=== PATIENT | female | born 1945 | race Caucasian/White ===

== ENCOUNTER → 2018-03-30 12:56 | Outpatient (CLI) | payer MEDICARE, BC, SELFPAY ==
--- NOTE | 2018-03-30 13:09 | RAD_ITS ---
HISTORY: HISTORY OF OSTEOPOROSIS, DIAGNOSED AT AGE 51, NO INJURY TO RIBS, HAVING LEFT POSTERIOR UPPER BACK PAIN COMPARISON: None FINDINGS: Generalized osteoporosis with poor bony detail. The left ribs are not well seen. Allowing for this, no displaced fracture or definite recent rib fracture. Dorsal kyphosis. Thoracolumbar S-shaped scoliosis with the thoracic convexity to the right. Age-indeterminate compression deformities are approximately the T7 and T9 vertebra. Left shoulder prosthesis. Postsurgical changes within the upper abdomen. Atherosclerotic thoracic aorta. RAD/Ribs Unil 2V No CXR IMPRESSION: 1. Osteoporosis with poor visualization of the left ribs. No definite displaced or acute rib fracture. 2. Kyphoscoliosis with age indeterminate compression deformities of approximately the T7 and T9 vertebra. 3. Suggest further correlation with whole-body bone scan at which time both the ribs and spine can be evaluated for recent injury. at 0420 Reported and signed by: Don Kruger MD Electronically Signed: Don Kruger, at 4:19 EST Tel , Service support ,
== END ==
LOC: RAD 13:06
PROVIDERS: Family Provider Preventive Medicine Occupational Medicine; PCP Preventive Medicine Occupational Medicine; Referring Provider Anesthesiology Pain Medicine; Visit Provider Anesthesiology Pain Medicine
DX: R07.9 Chest pain, unspecified (principal)
CPT/HCPCS: 71100

== ENCOUNTER → 2018-12-12 07:14 | Outpatient (CLI) | payer MEDICARE, BC, SELFPAY ==
--- NOTE | 2018-12-12 07:19 | CT_ITS ---
STUDY: LOW DOSE CT LUNG CANCER SCREENING REASON FOR EXAM: Female, 73 years old. The patient has a smoking history of 1.5 pack per day for 50 years. RADIATION DOSAGE (If Supplied By Facility): CTDIvol = ( 2.01 ) mGy, DLP = ( 63.3 ) mGycm TECHNIQUE: No contrast was administered. Low dose technique was utilized (average mAS-38 and kVp 120). 1.25 mm axial source images with a slice interval of 1.25-mm were reconstructed in lung windows. 2.5 mm axial source images with a slice interval of 2.5-mm were reconstructed in lung windows. 5.0 mm axial source images with a slice interval of 5.0-mm were reconstructed in soft tissue windows. Nodule measured using lung windows on PACS and/or independent workstation with automated measurement of minimum and maximum diameter. Nodule measurement reported as average diameter rounded to the nearest whole number. Growth is defined as an increase ins size of greater than 1.5 mm. COMPARISON: None. NODULES: No significant nodules are seen. Emphysema: Hyperinflation and mild emphysematous changes. Scarring at the lung bases. Endobronchial lesion: None Aorta: Atherosclerotic calcific plaques at the level of the aortic arch and descending thoracic aorta. Coronary arteries: Coronary artery calcification. Heart: Unremarkable. Mediastinal nodes: Small mediastinal lymph nodes. Other chest and abdominal findings: Increased kyphosis with loss of height of multiple central dorsal vertebrae. CT/Low Dose CT Lung Screening IMPRESSION: Lung-RADS category 2 - Continue annual screening with LDCT in 12 months. IMPORTANT NOTES FOR USE: ACR Lung-RADS Version 1.0 Assessment Categories Release Date: June 19, 2013 Category: Coded 0-4 bases on nodule(s) with highest degree of suspicion. Negative screen is defined as categories 1 and 2; a positive screen is defined as categories 3 and 4. Category 3 and 4A nodules that are unchanged on interval CT should be coded as category 2, and individuals returned to screening in 12 months. Category 4X: Category 3 or 4 nodules with additional imaging findings that increase the suspicion of lung cancer, such as spiculation, GGN that doubles in size in 1 year, enlarged lymph notes, etc. Category Modifiers: S (significant finding unrelated to lung cancer) and C (prior history of treated lung cancer) may be added to the 0-4 Lung-RADS Electronically Signed: Manolo Rothman, at 14:53 EDT , Service support ,
--- NOTE | 2018-12-12 13:34 | PFT ---
INTRODUCTION: The patient is a 73-year-old female that presents for pulmonary function studies secondary to a diagnosis of tobacco abuse. Respiratory therapy reports good patient effort. Bronchodilators were used during testing. INTERPRETATION: Forced expiration spirometry demonstrates no evidence of a large airways obstructive ventilatory defect. There was a significant response to aerosolized bronchodilators noted, based upon change in FEV1. Spirograms are of suboptimal quality and terminate prior to 6 seconds, likely underestimating FVC. Body plethysmography was performed and reveals lung volumes to be within normal limits. Diffusing capacity by single breath CO is reduced at 45% of predicted. IMPRESSION: No large airways defect. Significant bronchodilator response. Normal lung volumes. Reduced diffusing capacity, which could be related to an underlying pulmonary vascular disorder such as pulmonary hypertension.
== END ==
PROVIDERS: Family Provider Family Medicine Geriatric Medicine; PCP Family Medicine Geriatric Medicine; Referring Provider Family Medicine Geriatric Medicine; Visit Provider Family Medicine Geriatric Medicine
DX: Z12.2 Encounter for screening for malignant neoplasm of respiratory organs (principal); Z87.891 Personal history of nicotine dependence
CPT/HCPCS: 94060; 94726; 94729; G0297

== ENCOUNTER 2018-12-12 22:22 | Inpatient (IN) | payer MEDICARE, BC, SELFPAY ==
[2018-12-12 22:23] VITALS: BP 139/92; PULSE 118; RESP 17; TEMP 36.7; O2SAT 96; BMI 22.4
--- NOTE | 2018-12-12 22:42 | EKG12_ITS ---
Test Reason : Blood Pressure : / mmHG Vent. Rate : 111 BPM Atrial Rate : 111 BPM P-R Int : 132 ms QRS Dur : 080 ms QT Int : 374 ms P-R-T Axes : 075 -25 045 degrees QTc Int : 508 ms Sinus tachycardia Septal infarct , age undetermined Abnormal ECG Confirmed by JIMMY ROBERSON, GIULIA ([id number]), editorial director CALIN GARZON ([id number]) on 12/16/2018 10:45:31 AM Referred By: Selvin Ca Confirmed By:GIULIA MARQUEZ MD
--- NOTE | 2018-12-12 22:49 | ED.VIS.GEN ---
History of Present Illness Chief Complaint: Abd Pain Informant: Patient Onset: Days Context: Gradual Onset Timing: Intermittent Narrative: Patient is a 73-year-old female with history of osteoporosis, multiple prior fractures and tobacco abuse presenting with vomiting. Patient states she has been throwing up and having some epigastric or left upper quadrant abdominal pain for the past few days however today she started throwing up what looked like coffee grounds. She denies any history of GI bleed. She also states that she is been feeling constipated but her last bowel movement was yesterday. She denies any black or bloody stools. 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 She denies ever having a colonoscopy or endoscopy. Patient states that she does have abdominal pain and feels that she needs to have a bowel movement but has been unable to have one. Patient denies any associated chest pain. She also states that she has had a chronic cough this been worse over the past 4 months or so. This is not significantly changed today. She does feel a bit weaker and more lightheaded than normal. Patient had a CT outpatient today as well as a recent pulmonary function test with Dr. Ca. She denies any other complaints at this time. Patient is not on any blood thinners. She is never had an endoscopy or colonoscopy as far she is aware. Past Medical History - Allergies and Home Meds Allergies/Adverse Reactions: Allergies No Known Allergies Allergy (Verified 12/12/18 22:23) Past Medical History: - - Osteoporosis, COPD Surgical History: gastric bypass, herniorrhaphy, total hip arthroplasty, - - Left shoulder arthroplasty Lives: With Family Smoking Status: Former smoker - Family History Maternal Family History: Reports: No pertinent history Review of Systems All systems negative except as indicated General: Reports: Malaise Respiratory: Reports: Cough - Chronic Gastrointestinal: Reports: Abdominal pain, Nausea, Vomiting, Diarrhea, - - Coffee-ground emesis per patient Musculoskeletal: Reports: Myalgias Neurological: Reports: Weakness - Generalized Physical Exam Vital Signs/Narrative: Vital Signs Temp Pulse Resp BP Pulse Ox 12/12/18 22:23 98.1 F 118 H 17 139/92 H 96 Inital Vital Signs reviewed: Yes General: Well developed, Cachectic, No Acute Distress Head: Normocephalic, Atraumatic Eyes: Perrl, EOMI. Negative for: Pale conjunctiva ENT: Moist mucous membranes, No rhinorrhea, TM's clear Neck: Supple, Nontender Cardiovascular: Regular rhythm, No murmurs, Tachycardia Respiratory: No distress, Diminished, Chest tenderness - Left lower chest wall, - - Bibasilar crackles Abdomen: Soft, Nondistended, Tender - Epigastric region, Hypoactive bowel sounds. Negative for: Guarding, Rebound tenderness Back: Nontender, Normal Inspection Extremities: Nontender, No edema Skin: Normal color, No rash Neurological: Alert, Oriented x3, Cranial nerves II-XII grossly intact, Normal Strength, Normal Sensation Psychological: Normal affect, Normal Mood Diagnostic/Tx/Re-eval Clinical Impression(s) from Imaging Studies Abdomen/Pelvis CT 12/12/18 23:29 IMPRESSION: Previous cholecystectomy or dilated intrahepatic biliary radicles and a prominent common bile duct Old compression fractures involving the superior endplates of T12, L2, L3 and L4 and a healing fracture involving the right iliac bone. Pelvic congestion syndrome demonstrated by numerous dilated and tortuous pelvic veins Electronically Signed: Kolton Stephen MD at 2:32 EDT Tel , Service support , Laboratory Data 12/12/18 12/12/18 12/12/18 22:52 22:52 22:52 WBC 7.7 RBC 4.29 Hgb 13.4 Hct 40.1 MCV 93.5 MCH 31.2 MCHC 33.4 RDW Std Deviation 53.1 H RDW Coeff of Vito 15.3 H Plt Count 318 MPV 9.4 Immature Gran % (Auto) 0.300 Neut % (Auto) 75.7 H Lymph % (Auto) 14.7 L [place] % (Auto) 8.6 Eos % (Auto) 0.7 Baso % (Auto) 0.0 Absolute Neuts (auto) 5.8 Absolute Lymphs (auto) 1.13 Nucleated RBC % 0 PT INR APTT Sodium 134 L Potassium 3.2 L Chloride 94 L Carbon Dioxide 33.0 H Anion Gap 7 BUN 26 H Creatinine 0.45 L Estim Creat Clear Calc 36.53 Est GFR (MDRD) Af Amer 174 Est GFR (MDRD) Non-Af 144 BUN/Creatinine Ratio 57.3 H Glucose 100 Lactic Acid 0.9 Calcium 8.5 Total Bilirubin 0.60 AST 14 L ALT 28 Alkaline Phosphatase 108 Troponin I < 0.015 Total Protein 6.2 L Albumin 2.6 L Globulin 3.6 Albumin/Globulin Ratio 0.7 L Lipase 191 Urine Color Urine Clarity Urine pH Ur Specific [place] Urine Protein Urine Glucose (UA) Urine Ketones Urine Occult Blood Urine Nitrite Urine Bilirubin Urine Urobilinogen Ur Leukocyte Esterase Urine RBC Urine WBC Ur Squamous Epith Cells Urine Bacteria Urine Mucus Blood Type Antibody Screen 12/12/18 12/12/18 12/13/18 22:52 23:00 00:45 WBC RBC Hgb Hct MCV MCH MCHC RDW Std Deviation RDW Coeff of Vito Plt Count MPV Immature Gran % (Auto) Neut % (Auto) Lymph % (Auto) [place] % (Auto) Eos % (Auto) Baso % (Auto) Absolute Neuts (auto) Absolute Lymphs (auto) Nucleated RBC % PT 12.8 INR 1.0 APTT 29.9 Sodium Potassium Chloride Carbon Dioxide Anion Gap BUN Creatinine Estim Creat Clear Calc Est GFR (MDRD) Af Amer Est GFR (MDRD) Non-Af BUN/Creatinine Ratio Glucose Lactic Acid Calcium Total Bilirubin AST ALT Alkaline Phosphatase Troponin I Total Protein Albumin Globulin Albumin/Globulin Ratio Lipase Urine Color Yellow Urine Clarity Clear Urine pH 8.0 Ur Specific [place] 1.015 Urine Protein Negative Urine Glucose (UA) Normal Urine Ketones Negative Urine Occult Blood Negative Urine Nitrite Negative Urine Bilirubin Negative Urine Urobilinogen Normal Ur Leukocyte Esterase Negative Urine RBC 0 SEEN Urine WBC 0 SEEN Ur Squamous Epith Cells 0 SEEN Urine Bacteria 0 SEEN Urine Mucus 0 SEEN Blood Type A POSITIVE Antibody Screen NEGATIVE - Rhythm Strip Rhythm Strip: Sinus Tach Rate: 111 Ectopy: None - EKG Initial EKG Interpretation: Sinus Tachycardia, - - Sinus tachycardia at a rate of 111 MD interval 132 QRS 80 QT/QTc 374/508 Left axis deviation Normal ST segments - Medical Decision Making Patient is evaluated for coffee-ground emesis. She appears nontoxic and in no acute distress. Patient is retching in the room and does produce emesis that is coffee-ground colored. She is tachycardic upon arrival but does improve slightly with fluids however she does remain tachycardic. Hemoglobin is normal. Patient is a vomit test negative for blood by gastric occult however still have a high clinical suspicion. Because of her associated abdominal pain CT of the abdomen and pelvis is obtained. This does not show any acute intra-abdominal process. Patient is given IV Protonix and fluids. Type and screen is sent. She will be admitted to general medical floor for further evaluation of presumed hematemesis. Discussed the case with Dr. Deluna, surgery on-call, who is agreeable with this. Patient has a chronic cough. She had a routine outpatient CT today that did not show any acute pulmonary pathology. Patient is admitted to Dr. Segovia service. She is stable for the medical floor at time of disposition. ED Disposition - Plan for ED Patient: Disposition: Acute Care Hospital [facility] Diagnosis: Hematemesis, Tachycardia
--- NOTE | 2018-12-12 22:49 | ED.RN ---
NO OLD EKGS IN MUSE
[2018-12-12] MEDS: Morphine 4 MG/ML Syringe IV (22:54)
[2018-12-12] MEDS: 0.9% Normal Saline 1,000 ML 1000 ML IV (22:54)
[2018-12-12] MEDS: Ondansetron 4 MG/2 ML Vial IV (22:54)
[2018-12-12 23:06] LABS: Absolute Lymphocyte Count 1.13 X10^3/uL (0.83-4.51); Absolute Neutrophil Count 5.8 X10^3/uL (2.0-7.7); Eosinophil# 0.05 X10^3/uL; Eosinophils% 0.7 % (0-5); Hematocrit 40.1 % (37-47); Hemoglobin 13.4 g/dL (12.0-15.0); Lymphocyte # 1.13 X10^3/ul (4.0); Lymphocyte % 14.7 % (19-41); Mean Corp Hgb Conc 33.4 g/dL (32-36); Mean Corpuscular Hgb 31.2 pg (27.0-32.0); Mean Corpuscular Volume 93.5 fL (81-99); Mean Platelet Vol. 9.4 fl (6.2-12.0); Monocyte# 0.66 X10^3/uL; Monocyte% 8.6 % (0-10); NRBC Flagged by Analyzer 0 % (0-5); Neutrophil # 5.82 X10^3/uL (2.7-7.7); Neutrophil % 75.7 % (47-70); Platelet Count 318 K/mm3 (150-450); RBC Distribution Width CV 15.3 % (11.6-14.6); RBC Distribution Width SD 53.1 fl (35.1-43.9); Red Blood Count 4.29 M/mm3 (4.2-5.4); White Blood Count 7.7 K/mm3 (4.4-11.0)
[2018-12-12 23:17] LABS: Partial Thromboplast Time 29.9 Seconds (24.1-36.2); Prothrombin Time (Protime)PT. 12.8 SECONDS (11.7-14.9)
[2018-12-12 23:29] LABS: Lactic Acid 0.9 mmol/L (0.4-2.0)
--- NOTE | 2018-12-12 23:29 | CT_ITS ---
STUDY: CT ABDOMEN AND PELVIS WITH CONTRAST REASON FOR EXAM: Female, 73 years old. Abdominal pain and vomiting RADIATION DOSAGE (If Supplied By Facility): CTDIvol = ( 10.81 ) mGy, DLP = ( 527.73 ) mGycm TECHNIQUE: Transaxial images were obtained from the dome of the diaphragm to the symphysis pubis without oral contrast. IV/Oral Isovue 370 100 was administered. Sagittal and coronal images were reconstructed. Individualized dose optimization techniques were used for this CT. COMPARISON: None. FINDINGS: The lung bases are clear. The liver is normal. A previous cholecystectomy with dilated intrahepatic biliary radicles and a 1.2 cm, common bile duct. The spleen is normal. The pancreas is normal. Both adrenals are normal. A 3.5 cm right renal cyst with 2 other tiny cysts in the right renal cortex. The left kidney is normal The previous gastric surgery. There is no bowel distention, acute appendicitis or diverticulitis. No constricting lesions are seen in large bowel. The abdominal wall is intact with no hernias. There is no ascites or any free intraperitoneal air. No indication of epiploic appendagitis The vascular structures in the retroperitoneum are normal. There is no retrocrural, retroperitoneal or mesenteric adenopathy. Old compression fractures involving the superior endplates of L4, L3, L2 and T12. There is also a healing fracture involving the right iliac bone The urinary bladder is normal. Previous hysterectomy. Congested veins in the pelvis There is no inguinal or pelvic adenopathy. There is no inguinal hernia. CT/Abdomen/Pelvis WITH Contrast IMPRESSION: Previous cholecystectomy or dilated intrahepatic biliary radicles and a prominent common bile duct Old compression fractures involving the superior endplates of T12, L2, L3 and L4 and a healing fracture involving the right iliac bone. Pelvic congestion syndrome demonstrated by numerous dilated and tortuous pelvic veins Electronically Signed: Kolton Stephen MD at 2:32 EDT Tel , Service support ,
[2018-12-12 23:36] LABS: ALB/GLOB Ratio 0.7 RATIO (0.9-2.4); AST(SGOT) 14 U/L (15-37); Alanine Aminotransfer ALT/SGPT 28 U/L (13-56); Albumin, Serum 2.6 g/dL (3.2-5.0); Alkaline Phosphatase 108 U/L (45-117); Anion Gap 7 (5-15); BUN 26 mg/dL (7-18); BUN/Creat Ratio 57.3 RATIO (10-20); Calcium,Total 8.5 mg/dL (8.5-10.1); Chloride 94 mmol/L (98-107); Creatinine, Serum 0.45 mg/dL (0.55-1.02); EST Glomerular Filtration Rate 144 mL/min (>60); Est Glom Filt Rate - Afr Amer 174 mL/min (>60); Estimated Creatinine Clearance 36.53 ml/min; Globulin 3.6 g/dL (2.2-4.2); Glucose 100 mg/dL (74-106); Lipase 191 U/L (73-393); Potassium 3.2 mmol/L (3.5-5.1); Protein, Total 6.2 g/dL (6.4-8.2); Sodium Level 134 mmol/L (136-145)
[2018-12-13] VITALS (15 sets, daily range): BP systolic 131–164; BP diastolic 79–100; PULSE 98–120; RESP 16–18; TEMP 36.7–37.5; O2SAT 91–96; BMI 22.6
[2018-12-13] MEDS: Ondansetron 4 MG/2 ML Vial IV ×2 (00:06→03:08)
[2018-12-13 00:54] LABS: Bacteria 0 SEEN /hpf (None Seen); Mucous, Urine 0 SEEN /hpf (<or=2+); Red Blood Cells-Urine 0 SEEN /hpf (0-5); Squamous Epithelial Cells - UA 0 SEEN /hpf (5-10); White Blood Cells 0 SEEN /hpf (0-5)
[2018-12-13 01:03] LABS: Color, Urine Yellow (Yellow); Glucose, Dipstick Normal (Normal); Ketone-Dipstick Negative (Negative); Leukocyte Esterase-Dipstick Negative /ul (Negative); Nitrite-Dipstick Negative (Negative); Occult Blood-Urine Negative /ul (Negative); Protein-Dipstick Negative (Negative); Specific Gravity, Urine 1.015 (1.002-1.030); Urine Bilirubin Dipstick Negative (Negative); Urine Clarity Clear (Clear); Urine Urobilinogen Normal (Normal)
--- NOTE | 2018-12-13 03:06 | HP.PCM_ITS ---
Problem List (1) Tobacco abuse Status: Chronic (2) Nausea and vomiting Status: Acute Qualifiers: Vomiting type: hematemesis Qualified Code(s): K92.0 - Hematemesis (3) Osteoporosis Status: Chronic (4) Depression Status: Chronic History of Present Illness Date of Admission: 12/13/18 Chief Complaint: nausea and vomiting The patient is a 73 year old female patient with a past medical history of osteoporosis, tobacco abuse disorder, unknown psychiatric history likely with depression presents to the emergency room with chief complaint of nausea and vomiting coffee-ground emesis. Onset of this began approximately 3 days ago and is associated with abdominal discomfort and pain. The patient currently denies chest pain or shortness of breath or fevers or chills. Laboratory studies show hemoglobin of 13, guaiac testing of her emesis was negative for blood however it did appear to be coffee-ground and this and was verified by ER physician. The patient denies history of GERD. She is agreeable to being admitted and followed by general surgeon Dr. Deluna for possible EGD. Past Medical History Past Medical History (Chronic Problems): Chronic Problems Tobacco abuse (Chronic) Osteoporosis (Chronic) Depression (Chronic) Allergies No Known Allergies Allergy (Verified 12/12/18 22:23) Surgical History: gastric bypass, herniorrhaphy, total hip arthroplasty, - - Left shoulder arthroplasty Lives: With Family Smoking Status: Former smoker - *Family History Maternal History Items: No pertinent history Review of Systems Constitutional: Denies: Chills, Fever, Weight Change HEENT: Denies: Head Aches, Sinus Congestion, Sinus Drainage Cardiovascular: Denies: Chest Pain, Palpitations Respiratory: Denies: Cough, Shortness of breath at rest, Sputum production Gastrointestinal: Reports: Abdominal Pain, Hematemesis, Nausea, Vomiting Genitourinary: Denies: Dysuria Musculoskeletal: Denies: Joint Pain, Joint Tenderness Skin: Denies: Rash, Wounds Neurological: Denies: Numbness, Tingling, Focal weakness Psychiatric: Reports: Anxiety, Depression. Denies: Homicidal Ideations, Suicidal Ideations Hematologic/ Lymphatic: Denies: Easy Bruising, Easy Bleeding VTE Information - Inpt Only VTE Present on Admission: No VTE Mechan Device Prophylaxis: SCD's VTE Pharm Prophylaxis ordered?: No Patient Problems: Active and Suspected Problems Nausea and vomiting (Acute) - Physical Exam Vitals/I&O's: Vital Signs Temp Pulse Resp BP Pulse Ox 98.1 F 105 H 17 152/98 H 91 12/12/18 22:23 12/13/18 02:55 12/13/18 02:55 12/13/18 02:55 12/13/18 02:55 Oxygen Delivery Method Room Air Weight: 115 lb Body Mass Index (BMI) 22.4 Intake and Output for Last 24 Hours 12/11/18 12/12/18 12/13/18 23:59 23:59 23:59 Intake Total 1110 / 1110 Balance 1110 / 1110 General: Alert, Oriented x3, Cooperative HEENT: Atraumatic, Normocephalic Neck: Supple Lungs: Clear to auscultation, Normal air movement, No rhonchi, No wheeze, No rales Cardiovascular: Regular rate, Normal S1, Normal S2, No murmurs, Tachycardic Abdomen: Bowel Sounds Present, Soft, Tender - generalized Extremities: No edema, Capillary Refill Less than 3 Seconds Skin: No rashes Musculoskeletal: No Tenderness to Palpation of Joints or Extremities Neurological: Neuro grossly intact Psych/Mental Status: Normal Affect, Appropriate Microbiology Past 72 Hours 12/13/18 00:02 Vomitus Gastric Occult Blood - Final 12/12/18 23:10 Stool Stool Occult Blood (YFN) - Final Laboratory Results 12/12/18 22:52: WBC 7.7, RBC 4.29, Hgb 13.4, Hct 40.1, MCV 93.5, MCH 31.2, MCHC 33.4, RDW Std Deviation 53.1 H, RDW Coeff of Vito 15.3 H, Plt Count 318, MPV 9.4, Immature Gran % (Auto) 0.300, Neut % (Auto) 75.7 H, Lymph % (Auto) 14.7 L, [place] % (Auto) 8.6, Eos % (Auto) 0.7, Baso % (Auto) 0.0, Absolute Neuts (auto) 5.8, Absolute Lymphs (auto) 1.13, Nucleated RBC % 0 12/12/18 22:52: Sodium 134 L, Potassium 3.2 L, Chloride 94 L, Carbon Dioxide 33.0 H, Anion Gap 7, BUN 26 H, Creatinine 0.45 L, Estim Creat Clear Calc 36.53, Est GFR (MDRD) Af Amer 174, Est GFR (MDRD) Non-Af 144, BUN/Creatinine Ratio 57.3 H, Glucose 100, Calcium 8.5, Total Bilirubin 0.60, AST 14 L, ALT 28, Alkaline Phosphatase 108, Troponin I < 0.015, Total Protein 6.2 L, Albumin 2.6 L, Globulin 3.6, Albumin/Globulin Ratio 0.7 L, Lipase 191 12/12/18 22:52: Lactic Acid 0.9 12/12/18 22:52: PT 12.8, INR 1.0, APTT 29.9 12/12/18 23:00: Blood Type A POSITIVE, Antibody Screen NEGATIVE 12/13/18 00:45: Urine Color Yellow, Urine Clarity Clear, Urine pH 8.0, Ur Specific [place] 1.015, Urine Protein Negative, Urine Glucose (UA) Normal, Urine Ketones Negative, Urine Occult Blood Negative, Urine Nitrite Negative, Urine Bilirubin Negative, Urine Urobilinogen Normal, Ur Leukocyte Esterase Negative, Urine RBC 0 SEEN, Urine WBC 0 SEEN, Ur Squamous Epith Cells 0 SEEN, Urine Bacteria 0 SEEN, Urine Mucus 0 SEEN Current Medications Sodium Chloride () 1,000 mls @ 100 mls/hr IV .Q10H ROCIO Assessment/Plan All Active Problems Nausea and vomiting (Acute) Chronic Problems Tobacco abuse (Chronic) Osteoporosis (Chronic) Depression (Chronic) Plan 1. Nausea vomiting with abdominal pain?admit to general medical floor, consult general surgeon Dr. Deluna, make patient n.p.o., IV normal saline at 75 cc/h, CBC CMP in the morning, IV Protonix 40 mg IV twice daily 2. Smoking cessation strongly encouraged patient on interested at this time can offer nicotine patch in the morning 3. Osteoporosis?continue any medications currently taking 4. DVT prophylaxis SCDs Code Visit Inpatient E&M: 94901 Init Hosp L3
[2018-12-13] MEDS: 0.9% Normal Saline 1,000 ML 100 ML IV (03:08)
[2018-12-13 05:52] LABS: Absolute Lymphocyte Count 1.09 X10^3/uL (0.83-4.51); Absolute Neutrophil Count 3.8 X10^3/uL (2.0-7.7); Eosinophil# 0.03 X10^3/uL; Eosinophils% 0.6 % (0-5); Hematocrit 35.9 % (37-47); Hemoglobin 11.6 g/dL (12.0-15.0); Lymphocyte # 1.09 X10^3/ul (4.0); Mean Corp Hgb Conc 32.3 g/dL (32-36); Mean Platelet Vol. 9.3 fl (6.2-12.0); Monocyte# 0.54 X10^3/uL; Monocyte% 9.9 % (0-10); NRBC Flagged by Analyzer 0 % (0-5); Neutrophil # 3.78 X10^3/uL (2.7-7.7); Neutrophil % 69.3 % (47-70); Platelet Count 281 K/mm3 (150-450); RBC Distribution Width CV 15.4 % (11.6-14.6); RBC Distribution Width SD 54.4 fl (35.1-43.9); Red Blood Count 3.74 M/mm3 (4.2-5.4); White Blood Count 5.5 K/mm3 (4.4-11.0)
--- NOTE | 2018-12-13 06:09 | NURSING ---
pt states that her bones break very easily. states even a bump can break a bone.
[2018-12-13 06:11] LABS: ALB/GLOB Ratio 0.8 RATIO (0.9-2.4); AST(SGOT) 12 U/L (15-37); Alanine Aminotransfer ALT/SGPT 24 U/L (13-56); Albumin, Serum 2.3 g/dL (3.2-5.0); Alkaline Phosphatase 88 U/L (45-117); Anion Gap 6 (5-15); BUN 34 mg/dL (7-18); BUN/Creat Ratio 73.3 RATIO (10-20); Calcium,Total 7.7 mg/dL (8.5-10.1); Chloride 97 mmol/L (98-107); Creatinine, Serum 0.46 mg/dL (0.55-1.02); EST Glomerular Filtration Rate 141 mL/min (>60); Est Glom Filt Rate - Afr Amer 170 mL/min (>60); Estimated Creatinine Clearance 38.37 ml/min; Glucose 86 mg/dL (74-106); Potassium 3.1 mmol/L (3.5-5.1); Protein, Total 5.3 g/dL (6.4-8.2); Sodium Level 136 mmol/L (136-145)
--- NOTE | 2018-12-13 06:21 | PN_ITS ---
Patient Problems: Active and Suspected Problems Nausea and vomiting (Acute) Hematemesis (Acute) Tachycardia (Acute) Subjective: The patient is a 73-year-old female with a past medical history of tobacco dependence, gastric bypass surgery, depression and osteoporosis who presented to the emergency department at [facility] on 12/13/2018 complaining of nausea and vomiting with coffee-ground appearing emesis. Symptoms began 3 days prior to presentation to the emergency room and were associated with abdominal discomfort. Vital signs at presentation to the emergency department were temperature 98.1, pulse rate 118, blood pressure 139/92, respiratory rate 17 and she was 96% saturated on room air. Hemoglobin was 13.4 and the remainder of the CBC was unremarkable. Sodium was mildly decreased at 134 and the potassium was 3.2 with a chloride of 94 and a carbon dioxide of 33. BUN was 26 with a creatinine of 0.45. LFTs were unremarkable. Troponin was less than 0.015. UA was unremarkable. Vomitus was Gastroccult negative. A CT scan of the abdomen and pelvis with IV contrast only showed previous cholecystectomy with dilated intrahepatic biliary radicles and a 1.2 cm common bile duct. There are renal cysts present on the right kidney and the left is normal. There was evidence of prior gastric surgery with no bowel distention acute appendicitis or diverticulitis. There were no constricting lesions. There were old compression fractures involving L4, L3, L2 and T 12. There is a healing fracture involving the right iliac bone. Previous hysterectomy. There were numerous congested veins in the pelvis no inguinal or pelvic adenopathy. She was admitted to the hospital and Dr. Deluna was consulted. She was started on IV Protonix twice daily and made n.p.o. Tells me that she fractured left ribs recently with no fall.... but the last rib x-ray she had at this institution were in March 2018 and at that time the rib x-rays showed no definite displaced were acute rib fractures but there was osteoporosis. She also had kyphoscoliosis with age-indeterminate compression deformities of T7 and T9. Also had fractured hip in the past with no fall. There are no hip x-rays or pelvis x-rays in the computer. She has not had a bone density scan at this institution. Recently changed physicians and now is seeing Dr. Ca. Tells me that she has been losing weight and her clothes are getting to big on her. She admits to taking Motrin every day for pain control. She has pain in the bones from old fractures she says. All events of the past 24 hours of been reviewed. Her most recent heart rate was at 4 AM and it was down to 106 bpm. Current blood pressure is 131/81. Potassium is still low at 3.1. BUN is 34 with a creatinine of 0.46. BUN/creatinine ratio is 73.3. Hemoglobin today is 11.6 following hydration. There are normochromic normocytic indices. CT chest 12/12 negative. PFTs done 12/12/2018 showed no large airways defect. There was significant bronchodilator response and normal lung volumes. There was reduced diffusing capacity which could be related to an underlying pulmonary vascular disorder such as pulmonary hypertension. - Physical Exam Vitals/I&O's: Vital Signs Temp Pulse Resp BP Pulse Ox 98.8 F 106 H 16 131/81 H 94 12/13/18 03:58 12/13/18 03:58 12/13/18 03:58 12/13/18 03:58 12/13/18 03:58 Oxygen Delivery Method Room Air Weight: 119 lb 11.376 oz Body Mass Index (BMI) 22.6 Intake and Output for Last 24 Hours 12/11/18 12/12/18 12/13/18 23:59 23:59 23:59 Intake Total 1288.33 / 1288.33 Balance 1288.33 / 1288.33 General: Alert, Cooperative, No apparent distress, - - She is very squires and she appears older than her stated age. HEENT: Atraumatic, PERRLA, EOMI, Normocephalic Oral: Dry Mucosa Neck: Supple, No JVD, Negative Carotid Bruits, No Nodes, Trachea Midline Lungs: Clear to auscultation Cardiovascular: Regular Rhythm, Normal S1, Normal S2, No murmurs, No rub noted, No Gallop, Tachycardic Abdomen: Soft, Non-Distended, Hyperactive Bowel Sounds - mildly hyperactive, Tender - in the epigastric area, - - No hepatosplenomegaly or masses appreciated. Extremities: No clubbing, No cyanosis, No edema, No Calf Tenderness, Peripheral Pulses Normal Skin: No rashes, - - she appears to be squires Musculoskeletal: Muscle Wasting Neurological: Cranial nerves II-XII grossly intact, Neuro grossly intact Psych/Mental Status: Normal Affect, Appropriate Microbiology Past 72 Hours 12/13/18 00:02 Vomitus Gastric Occult Blood - Final 12/12/18 23:10 Stool Stool Occult Blood (YFN) - Final Laboratory Results 12/12/18 22:52: WBC 7.7, RBC 4.29, Hgb 13.4, Hct 40.1, MCV 93.5, MCH 31.2, MCHC 33.4, RDW Std Deviation 53.1 H, RDW Coeff of Vito 15.3 H, Plt Count 318, MPV 9.4, Immature Gran % (Auto) 0.300, Neut % (Auto) 75.7 H, Lymph % (Auto) 14.7 L, [place] % (Auto) 8.6, Eos % (Auto) 0.7, Baso % (Auto) 0.0, Absolute Neuts (auto) 5.8, Absolute Lymphs (auto) 1.13, Nucleated RBC % 0 12/12/18 22:52: Sodium 134 L, Potassium 3.2 L, Chloride 94 L, Carbon Dioxide 33.0 H, Anion Gap 7, BUN 26 H, Creatinine 0.45 L, Estim Creat Clear Calc 36.53, Est GFR (MDRD) Af Amer 174, Est GFR (MDRD) Non-Af 144, BUN/Creatinine Ratio 57.3 H, Glucose 100, Calcium 8.5, Total Bilirubin 0.60, AST 14 L, ALT 28, Alkaline Phosphatase 108, Troponin I < 0.015, Total Protein 6.2 L, Albumin 2.6 L, Globulin 3.6, Albumin/Globulin Ratio 0.7 L, Lipase 191 12/12/18 22:52: Lactic Acid 0.9 12/12/18 22:52: PT 12.8, INR 1.0, APTT 29.9 12/12/18 23:00: Blood Type A POSITIVE, Antibody Screen NEGATIVE 12/13/18 00:45: Urine Color Yellow, Urine Clarity Clear, Urine pH 8.0, Ur Specific [place] 1.015, Urine Protein Negative, Urine Glucose (UA) Normal, Urine Ketones Negative, Urine Occult Blood Negative, Urine Nitrite Negative, Urine Bilirubin Negative, Urine Urobilinogen Normal, Ur Leukocyte Esterase Negative, Urine RBC 0 SEEN, Urine WBC 0 SEEN, Ur Squamous Epith Cells 0 SEEN, Urine Bacteria 0 SEEN, Urine Mucus 0 SEEN 12/13/18 05:40: WBC 5.5, RBC 3.74 L, Hgb 11.6 L, Hct 35.9 L, MCV 96.0, MCH 31.0, MCHC 32.3, RDW Std Deviation 54.4 H, RDW Coeff of Vito 15.4 H, Plt Count 281, MPV 9.3, Immature Gran % (Auto) 0.200, Neut % (Auto) 69.3, Lymph % (Auto) 20.0, Dar[place] % (Auto) 9.9, Eos % (Auto) 0.6, Baso % (Auto) 0.0, Absolute Neuts (auto) 3.8, Absolute Lymphs (auto) 1.09, Nucleated RBC % 0 12/13/18 05:40: Sodium 136, Potassium 3.1 L, Chloride 97 L, Carbon Dioxide 33.0 H, Anion Gap 6, BUN 34 H, Creatinine 0.46 L, Estim Creat Clear Calc 38.37, Est GFR (MDRD) Af Amer 170, Est GFR (MDRD) Non-Af 141, BUN/Creatinine Ratio 73.3 H, Glucose 86, Calcium 7.7 L, Total Bilirubin 0.40, AST 12 L, ALT 24, Alkaline Phosphatase 88, Total Protein 5.3 L, Albumin 2.3 L, Globulin 3.0, Albumin/Globulin Ratio 0.8 L Current Medications Pantoprazole Sodium 40 mg/ (Sodium Chloride) 110 mls @ 330 mls/hr IV Q12 [facility] Potassium Chloride/Sodium Chloride () 1,000 mls @ 75 mls/hr IV .[id number] [facility] Last Admin: 12/13/18 04:55 Dose: 75 mls/hr Documented by: Sodium Chloride () 250 mls @ 15 mls/hr IV .[id number] PRN PRN Reason: Saline Flush Ondansetron HCl (Zofran) 4 mg IV Q8H PRN PRN PRN Reason: NAUSEA/VOMITING Prochlorperazine Edisylate (Compazine Iv) 5 mg IV Q4H PRN PRN PRN Reason: Breakthrough nausea/vomiting Sodium Chloride () 5 - 15 ml IV UD PRN PRN Reason: SALINE FLUSH Medical Necessity - Tobacco Use Smoking Status: Current every day smoker Assessment/Plan All Active Problems Nausea and vomiting (Acute) Hematemesis (Acute) Tachycardia (Acute) Impressions 1. UGI bleed due to PUD 2. History of severe osteoporosis-not on treatment. 3. Anemia secondary to acute blood loss from upper GI bleed 4. Hypokalemia-will supplement 5. 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 Tobacco dependence 7. Premature menopause at 25 years of age 24 hour urine for quantitative calcium Vitamin D and PTH are normal Needs to have a bone density. Will try and get the results of the last bone density ordered by Dr. Ruvalcaba. EGD showed blood in the jejunum with a ulceration at the gastrojejunal anastomosis. There was also a spurting gastric ulcer with oozing. It was injected and treated with an argon laser. Esophagus appeared normal. D/W Dr. Deluna and he plans on taking a second look on 12/15. Add Carafate to the drug regimen. Check iron studies, B vitamins, zinc. Code Visit Inpatient E&M: 70792 Subs Hosp L2
[2018-12-13 07:09] LABS: Magnesium 2.2 mg/dL (1.6-2.6)
[2018-12-13 07:20] LABS: Amphetamine Urine VISTA NEGATIVE (<1000 ng/mL); Barbiturate Urine VISTA NEGATIVE (< 200 ng/mL); Benzodiazepine Urine VISTA NEGATIVE (< 200 ng/mL); Cocaine Urine VISTA NEGATIVE (< 300 ng/mL); Ecstacy Urine VISTA NEGATIVE (< 500 ng/mL); Methadone Urine VISTA NEGATIVE (< 300 ng/mL); PCP Urine VISTA NEGATIVE (< 25 ng/mL); THC Urine VISTA POSITIVE (< 50 ng/mL); Vista UDS pH Range 7
[2018-12-13] MEDS: Potassium Chloride 10mEq/100mL 10 MEQ/100 ML IV.SOLN. 90 MEQ IV BOLUS ×4 (08:10→12:50)
[2018-12-13 08:39] LABS: Vitamin D,25 Hydroxy 35.4 ng/mL (29.95-100.01)
[2018-12-13 08:40] LABS: PTHIN 74.5 pg/mL (18.4-80.1)
[2018-12-13 08:55] LABS: Urine Sodium 124 mmol/L (Not Establ.)
[2018-12-13 09:07] LABS: Urea Nitrogen, Urine 524 mg/dL (NO RANGE EST.)
--- NOTE | 2018-12-13 12:36 | PCM.CONS.GEN ---
Reason for Consult Date of Consultation: 12/13/18 Reason for Consultation: hematemesis, epigastric pain History of Present Illness: The patient is a 73 year old F who presents with approximately a week or longer history of upper abdominal discomfort. Then for the last 3days she noted vomiting. initially this vomitus was nonbloody and did not appear to contain coffee grounds.. Then for the last 2 days she noted coffee ground emesis. in the emergency department, the patient's hemoglobin was 13. This morning was 11.6. the patient has a prior history of gastric bypass surgery 20 years previously. She smokes. She does not drink alcohol. She does note she has orthopedic issues and takes which she describes as large quantities of ibuprofen. in the emergency department. A CT scan of the abdomen and pelvis was obtained. This demonstrated previous cholecystectomy with mildly dilated hepatic biliary radicals and a 1.2 cm common bile duct. Patient had a right renal cyst area patient had previous gastric surgery noted. She had no signs of bowel distention appendicitis or diverticulitis. I was contacted for vomiting and likely coffee-ground emesis. Material was sent from the ER and this was noted to be Hemoccult negative. Past Medical History Past Medical History (Chronic Problems): Chronic Problems Tobacco abuse (Chronic) Osteoporosis (Chronic) Depression (Chronic) Allergies No Known Allergies Allergy (Verified 12/12/18 22:23) Home Medications: Ambulatory Orders Medication Instructions Recorded NK 12/13/18 Surgical History: gastric bypass, herniorrhaphy, total hip arthroplasty, - - Left shoulder arthroplasty Lives: With Family Smoking Status: Current every day smoker - *Family History Maternal History Items: No pertinent history Review of Systems Constitutional: Reports: Anorexia, Malaise HEENT: Denies: Head Aches, Sinus Congestion, Sinus Drainage Cardiovascular: Denies: Chest Pain, Palpitations Respiratory: Denies: Cough, Shortness of breath at rest, Sputum production Gastrointestinal: Reports: Abdominal Pain, Hematemesis. Denies: Nausea, Vomiting Genitourinary: Denies: Dysuria Musculoskeletal: Reports: Arm Pain, Back Pain, Leg Pain. Denies: Joint Pain, Joint Tenderness Skin: Denies: Rash, Wounds Neurological: Denies: Numbness, Tingling, Focal weakness Psychiatric: Denies: Anxiety, Depression, Homicidal Ideations, Suicidal Ideations Hematologic/ Lymphatic: Denies: Easy Bruising, Easy Bleeding Patient Problems: Active and Suspected Problems Nausea and vomiting (Acute) Hematemesis (Acute) Tachycardia (Acute) - Physical Exam Vitals/I&O's: Vital Signs Temp Pulse Resp BP Pulse Ox 98.8 F 120 H 16 158/96 H 92 12/13/18 08:24 12/13/18 08:27 12/13/18 08:24 12/13/18 08:24 12/13/18 08:24 Oxygen Delivery Method Room Air Weight: 54.3 kg Body Mass Index (BMI) 22.6 Intake and Output for Last 24 Hours 12/11/18 12/12/18 12/13/18 23:59 23:59 23:59 Intake Total 1879.58 / 1879.58 Output Total 500 / 500 Balance 1379.58 / 1379.58 General: Alert, Oriented x3, Cooperative Lungs: Clear to auscultation, Normal air movement Cardiovascular: Regular rate, No murmurs, Tachycardic Abdomen: Bowel Sounds Present, Soft, Tender - mildly so in the epigastrium, no peritoneal signs Microbiology Past 72 Hours 12/13/18 00:02 Vomitus Gastric Occult Blood - Final 12/12/18 23:10 Stool Stool Occult Blood (YFN) - Final Laboratory Results 12/12/18 22:52: WBC 7.7, RBC 4.29, Hgb 13.4, Hct 40.1, MCV 93.5, MCH 31.2, MCHC 33.4, RDW Std Deviation 53.1 H, RDW Coeff of Vito 15.3 H, Plt Count 318, MPV 9.4, Immature Gran % (Auto) 0.300, Neut % (Auto) 75.7 H, Lymph % (Auto) 14.7 L, [place] % (Auto) 8.6, Eos % (Auto) 0.7, Baso % (Auto) 0.0, Absolute Neuts (auto) 5.8, Absolute Lymphs (auto) 1.13, Nucleated RBC % 0 12/12/18 22:52: Sodium 134 L, Potassium 3.2 L, Chloride 94 L, Carbon Dioxide 33.0 H, Anion Gap 7, BUN 26 H, Creatinine 0.45 L, Estim Creat Clear Calc 36.53, Est GFR (MDRD) Af Amer 174, Est GFR (MDRD) Non-Af 144, BUN/Creatinine Ratio 57.3 H, Glucose 100, Calcium 8.5, Total Bilirubin 0.60, AST 14 L, ALT 28, Alkaline Phosphatase 108, Troponin I < 0.015, Total Protein 6.2 L, Albumin 2.6 L, Globulin 3.6, Albumin/Globulin Ratio 0.7 L, Lipase 191 12/12/18 22:52: Lactic Acid 0.9 12/12/18 22:52: PT 12.8, INR 1.0, APTT 29.9 12/12/18 22:52: Urine Opiates Screen Cancelled, Urine Methadone Screen Cancelled, Ur Barbiturates Screen Cancelled, Ur Phencyclidine Scrn Cancelled, Ur Amphetamines Screen Cancelled, U Methamphetamin-MDMA Cancelled, U Benzodiazepines Scrn Cancelled, Urine Cocaine Screen Cancelled, U Cannabinoids Screen Cancelled, Ur Drug Screen Comment Cancelled 12/12/18 22:52: Vitamin D 25-Hydroxy 35.4 12/12/18 23:00: Blood Type A POSITIVE, Antibody Screen NEGATIVE 12/13/18 00:45: Urine Color Yellow, Urine Clarity Clear, Urine pH 8.0, Ur Specific [place] 1.015, Urine Protein Negative, Urine Glucose (UA) Normal, Urine Ketones Negative, Urine Occult Blood Negative, Urine Nitrite Negative, Urine Bilirubin Negative, Urine Urobilinogen Normal, Ur Leukocyte Esterase Negative, Urine RBC 0 SEEN, Urine WBC 0 SEEN, Ur Squamous Epith Cells 0 SEEN, Urine Bacteria 0 SEEN, Urine Mucus 0 SEEN 12/13/18 00:45: Urine Opiates Screen POSITIVE H, Urine Methadone Screen NEGATIVE, Ur Barbiturates Screen NEGATIVE, Ur Phencyclidine Scrn NEGATIVE, Ur Amphetamines Screen NEGATIVE, U Methamphetamin-MDMA NEGATIVE, U Benzodiazepines Scrn NEGATIVE, Urine Cocaine Screen NEGATIVE, U Cannabinoids Screen POSITIVE H, Ur Drug Screen Comment 12/13/18 00:45: Urine Urea Nitrogen 524 12/13/18 00:45: Urine Creatinine 24.90 12/13/18 00:45: Ur Random Sodium 124 12/13/18 05:40: WBC 5.5, RBC 3.74 L, Hgb 11.6 L, Hct 35.9 L, MCV 96.0, MCH 31.0, MCHC 32.3, RDW Std Deviation 54.4 H, RDW Coeff of Vito 15.4 H, Plt Count 281, MPV 9.3, Immature Gran % (Auto) 0.200, Neut % (Auto) 69.3, Lymph % (Auto) 20.0, [place] % (Auto) 9.9, Eos % (Auto) 0.6, Baso % (Auto) 0.0, Absolute Neuts (auto) 3.8, Absolute Lymphs (auto) 1.09, Nucleated RBC % 0 12/13/18 05:40: Sodium 136, Potassium 3.1 L, Chloride 97 L, Carbon Dioxide 33.0 H, Anion Gap 6, BUN 34 H, Creatinine 0.46 L, Estim Creat Clear Calc 38.37, Est GFR (MDRD) Af Amer 170, Est GFR (MDRD) Non-Af 141, BUN/Creatinine Ratio 73.3 H, Glucose 86, Calcium 7.7 L, Total Bilirubin 0.40, AST 12 L, ALT 24, Alkaline Phosphatase 88, Total Protein 5.3 L, Albumin 2.3 L, Globulin 3.0, Albumin/Globulin Ratio 0.8 L 12/13/18 05:40: Phosphorus 3.0, Magnesium 2.2 12/13/18 05:40: PTH Intact 74.5 Current Medications Pantoprazole Sodium 40 mg/ (Sodium Chloride) 110 mls @ 330 mls/hr IV Q12 [facility] Last Infusion: 12/13/18 11:00 Dose: Infused Documented by: Potassium Chloride/Sodium Chloride () 1,000 mls @ 75 mls/hr IV .[id number] [facility] Last Infusion: 12/13/18 08:10 Dose: 0 mls/hr Documented by: Sodium Chloride () 250 mls @ 15 mls/hr IV .[id number] PRN PRN Reason: Saline Flush Last Infusion: 12/13/18 11:23 Dose: 15 mls/hr Documented by: Ondansetron HCl (Zofran) 4 mg IV Q8H PRN PRN PRN Reason: NAUSEA/VOMITING Prochlorperazine Edisylate (Compazine Iv) 5 mg IV Q4H PRN PRN PRN Reason: Breakthrough nausea/vomiting Sodium Chloride () 5 - 15 ml IV UD PRN PRN Reason: SALINE FLUSH Assessment/Plan All Active Problems Nausea and vomiting (Acute) Hematemesis (Acute) Tachycardia (Acute) nausea, vomiting, questionable coffee-ground emesis-previous gastric bypass surgery, tobacco use, NSAID use I plan to perform upper endoscopy and assess for peptic ulcer disease, signs of recent bleeding. The patient is to have the risks, benefits, complications and possible alternatives and consents to upper endoscopy. the patient remains mildly tachycardic. Her hemoglobin has decreased 1 g overnight. We will follow clinically to assure that she is not having more brisk GI bleeding.
--- NOTE | 2018-12-13 12:50 | CASEMGMT ---
RN CM Assessment Presentation: N/V, coffee ground emesis. Plan is for upper endoscopy per Dr. Deluna Intro role of CM and purpose of RN CM assessment to patient. Demographics, PCP and Pharmacy verified. Pt states she has severe osteoporosis and has difficulty with activity. Uses rollator and hospital bed at home. Hx of compression fractures, pain management. Pt lives with her daughter and she plans to return on dc. Family assists her with care needs at home and any transportation needs. PCP: Dr. Ca Specialists: Dr. Deluna, Hx of pain management Preferred Pharmacy: [facility] Insurance: [facility] Prescription Benefit: yes LNOK: Daughter Kary Living Arrangements: Lives in two story home with first floor, handicap accessible bathroom. Pt states she is generally able to shower, dress etc independently. Pt states family assists with any care needs and quilt stuffer. Transportation: Family drives pt. DME: rollator, grab bars HHC: none Patient DC goals: Home DC PLAN: Home on discharge with family support. Randi MONTES DE OCA RN ACM
--- NOTE | 2018-12-13 13:53 | NURSING ---
report called to Tiarra CANADA in [place].
[2018-12-13] MEDS: Lactated Ringers 1,000 ML 100 ML IV ×2 (14:19→19:51)
--- NOTE | 2018-12-13 14:42 | OP.ENDO_ITS ---
12/13/2018 Selvin Ca MD [address] [place] [address] Re : Upper GI endoscopy procedure for Yasmin Alegria Dear Dr. Ca This procedure was performed on Thursday, December 13, 2018. My impressions and recommendations are as follows: Impressions : - Jejunal blood. - Gastric bypass with a normal-sized pouch and intact staple line. Gastrojejunal anastomosis characterized by ulceration. - Spurting gastric ulcer with oozing hemorrhage (David Class Ib). Injected. Treated with argon plasma coagulation (APC). - Normal esophagus. - No specimens collected. Recommendations : - Return patient to hospital hameed for ongoing care. - NPO. - Use sucralfate suspension 1 gram PO QID. - Continue present medications. My findings are described in the full procedure note, which is enclosed. If I can be of further assistance, please feel free to contact me at Doctor phone number(s): , Work: . Sincerely, Erik Deluna MD 12/13/2018 2:42:11 PM This report has been signed electronically.
--- NOTE | 2018-12-13 15:06 | NURSING ---
request for medical records faxed to Dr Ca's office. medical records received and placed on chart.
[2018-12-13] MEDS: 0.9% Saline Lock 10 ML Syringe IV ×2 (15:08→19:52)
[2018-12-13] MEDS: Sucralfate 1 GM Tablet PO ×2 (16:04→21:46)
[2018-12-13 16:55] LABS: Hematocrit 35.3 % (37-47); Hemoglobin 11.2 g/dL (12.0-15.0)
[2018-12-13 20:48] LABS: Hemoglobin 10.7 g/dL (12.0-15.0)
[2018-12-13 21:11] LABS: Anion Gap 5 (5-15); BUN 29 mg/dL (7-18); BUN/Creat Ratio 71.8 RATIO (10-20); Calcium,Total 8.1 mg/dL (8.5-10.1); Chloride 102 mmol/L (98-107); EST Glomerular Filtration Rate 165 mL/min (>60); Est Glom Filt Rate - Afr Amer 200 mL/min (>60); Estimated Creatinine Clearance 38.37 ml/min; Glucose 74 mg/dL (74-106); Potassium 3.3 mmol/L (3.5-5.1); Sodium Level 136 mmol/L (136-145)
[2018-12-13 23:53] LABS: Hematocrit 34.4 % (37-47); Hemoglobin 11.3 g/dL (12.0-15.0)
[2018-12-14] MEDS: Acetaminophen 650 MG Suppository RECTAL (03:05)
[2018-12-14 03:30] VITALS: BP 155/77; PULSE 89; RESP 16; TEMP 36.4; O2SAT 94
--- NOTE | 2018-12-14 05:57 | PN.SURG_ITS ---
Patient Problems: Active and Suspected Problems Nausea and vomiting (Acute) Hematemesis (Acute) Tachycardia (Acute) Subjective: no further vomiting - Physical Exam Vitals/I&O's: Vital Signs Temp Pulse Resp BP Pulse Ox 97.6 F L 89 16 155/77 H 94 12/14/18 03:30 12/14/18 03:30 12/14/18 03:30 12/14/18 03:30 12/14/18 03:30 Oxygen Delivery Method Room Air Weight: 54.3 kg Body Mass Index (BMI) 22.6 Intake and Output for Last 24 Hours 12/12/18 12/13/18 12/14/18 23:59 23:59 23:59 Intake Total 2942.08 / 2942.08 Output Total 850 / 1150 300 / 300 Balance 2092.08 / 1792.08 -300 / -300 General: Alert, Oriented x3, Cooperative Abdomen: Soft, Non Tender Microbiology Past 72 Hours 12/13/18 19:00 Stool Stool Occult Blood (YFN) - Final Occult Blood Positive 12/13/18 00:02 Vomitus Gastric Occult Blood - Final 12/12/18 23:10 Stool Stool Occult Blood (YFN) - Final Laboratory Results 12/12/18 22:52: Urine Opiates Screen Cancelled, Urine Methadone Screen Cancelled, Ur Barbiturates Screen Cancelled, Ur Phencyclidine Scrn Cancelled, Ur Amphetamines Screen Cancelled, U Methamphetamin-MDMA Cancelled, U Benzodiazepines Scrn Cancelled, Urine Cocaine Screen Cancelled, U Cannabinoids Screen Cancelled, Ur Drug Screen Comment Cancelled 12/12/18 22:52: Vitamin D 25-Hydroxy 35.4 12/13/18 00:45: Urine Opiates Screen POSITIVE H, Urine Methadone Screen NEGATIVE, Ur Barbiturates Screen NEGATIVE, Ur Phencyclidine Scrn NEGATIVE, Ur Amphetamines Screen NEGATIVE, U Methamphetamin-MDMA NEGATIVE, U Benzodiazepines Scrn NEGATIVE, Urine Cocaine Screen NEGATIVE, U Cannabinoids Screen POSITIVE H, Ur Drug Screen Comment 12/13/18 00:45: Urine Urea Nitrogen 524 12/13/18 00:45: Urine Creatinine 24.90 12/13/18 00:45: Ur Random Sodium 124 12/13/18 05:40: Sodium 136, Potassium 3.1 L, Chloride 97 L, Carbon Dioxide 33.0 H, Anion Gap 6, BUN 34 H, Creatinine 0.46 L, Estim Creat Clear Calc 38.37, Est GFR (MDRD) Af Amer 170, Est GFR (MDRD) Non-Af 141, BUN/Creatinine Ratio 73.3 H, Glucose 86, Calcium 7.7 L, Total Bilirubin 0.40, AST 12 L, ALT 24, Alkaline Phosphatase 88, Total Protein 5.3 L, Albumin 2.3 L, Globulin 3.0, Albumin/Globulin Ratio 0.8 L 12/13/18 05:40: Phosphorus 3.0, Magnesium 2.2 12/13/18 05:40: PTH Intact 74.5 12/13/18 16:45: Hgb 11.2 L, Hct 35.3 L 12/13/18 20:07: Sodium 136, Potassium 3.3 L, Chloride 102, Carbon Dioxide 29.0, Anion Gap 5, BUN 29 H, Creatinine 0.40 L, Estim Creat Clear Calc 38.37, Est GFR (MDRD) Af Amer 200, Est GFR (MDRD) Non-Af 165, BUN/Creatinine Ratio 71.8 H, Glucose 74, Calcium 8.1 L 12/13/18 20:07: Hgb 10.7 L, Hct 33.0 L 12/13/18 23:43: Hgb 11.3 L, Hct 34.4 L Current Medications Acetaminophen (Tylenol) 650 mg RECTAL Q6H PRN PRN PRN Reason: Pain Or Fever > 100.7 F Last Admin: 12/14/18 03:05 Dose: 650 mg Documented by: Pantoprazole Sodium 40 mg/ (Sodium Chloride) 110 mls @ 330 mls/hr IV Q12 [facility] Last Infusion: 12/13/18 21:59 Dose: Infused Documented by: Sodium Chloride () 250 mls @ 15 mls/hr IV .[id number] PRN PRN Reason: Saline Flush Last Infusion: 12/13/18 16:03 Dose: Infused Documented by: Lactated Ringer's () 1,000 mls @ 100 mls/hr IV .Q10H [facility] Last Admin: 12/13/18 19:51 Dose: 100 mls/hr Documented by: Ondansetron HCl (Zofran) 4 mg IV Q8H PRN PRN PRN Reason: NAUSEA/VOMITING Prochlorperazine Edisylate (Compazine Iv) 5 mg IV Q4H PRN PRN PRN Reason: Breakthrough nausea/vomiting Sodium Chloride () 5 - 15 ml IV UD PRN PRN Reason: SALINE FLUSH Last Admin: 12/13/18 19:52 Dose: 10 ml Documented by: Sucralfate (Carafate) 1 gm PO 1HR_ACHS [facility] Last Admin: 12/13/18 21:46 Dose: 1 gm Documented by: Medical Necessity - Tobacco Use Smoking Status: Current every day smoker Assessment/Plan All Active Problems Nausea and vomiting (Acute) Hematemesis (Acute) Tachycardia (Acute) nausea, vomiting, coffee-ground emesis-previous gastric bypass surgery, tobacco use, NSAID use upper endoscopy demonstrated marginal ulceration with bleeding - controlled with epinephrine and argon coagulation. Hgb stable - OK to advance diet
[2018-12-14] MEDS: Sucralfate 1 GM Tablet PO ×4 (05:58→21:38)
[2018-12-14 06:19] LABS: Hematocrit 35.6 % (37-47); Hemoglobin 11.6 g/dL (12.0-15.0); Mean Corp Hgb Conc 32.6 g/dL (32-36); Mean Corpuscular Hgb 30.9 pg (27.0-32.0); Mean Corpuscular Volume 94.9 fL (81-99); Mean Platelet Vol. 9.4 fl (6.2-12.0); Platelet Count 271 K/mm3 (150-450); RBC Distribution Width CV 15.1 % (11.6-14.6); RBC Distribution Width SD 53.1 fl (35.1-43.9); Red Blood Count 3.75 M/mm3 (4.2-5.4); White Blood Count 4.6 K/mm3 (4.4-11.0)
[2018-12-14 06:43] LABS: Anion Gap 8 (5-15); BUN 15 mg/dL (7-18); BUN/Creat Ratio 41.7 RATIO (10-20); Calcium,Total 8.1 mg/dL (8.5-10.1); Chloride 100 mmol/L (98-107); Creatinine, Serum 0.36 mg/dL (0.55-1.02); EST Glomerular Filtration Rate 188 mL/min (>60); Est Glom Filt Rate - Afr Amer 228 mL/min (>60); Estimated Creatinine Clearance 38.37 ml/min; Glucose 68 mg/dL (74-106); Potassium 3.4 mmol/L (3.5-5.1); Sodium Level 136 mmol/L (136-145)
[2018-12-14 07:56] VITALS: O2SAT 95
[2018-12-14 09:05] VITALS: BP 150/79; PULSE 99; RESP 16; TEMP 36.8; O2SAT 97
[2018-12-14 10:46] LABS: Ferritin 69 ng/mL (8-252); Iron 43 ug/dL (50-170); Iron Binding Capacity,Total 256 ug/dL (250-450); PERCENT IRON SATURATION 16.8 % (15.0-55.0)
[2018-12-14 11:10] LABS: Vitamin B12 155 pg/mL (211-911)
[2018-12-14] MEDS: Raloxifene HCl 60 MG Tablet PO (11:31)
[2018-12-14] MEDS: Ensure Clear 120 ML Liquid PO ×2 (11:33→16:52)
[2018-12-14] MEDS: traMADol 50 MG Tablet PO (11:35)
[2018-12-14 11:39] VITALS: BP 156/79; PULSE 91; RESP 16; TEMP 36.6; O2SAT 98
[2018-12-14 14:58] VITALS: BP 143/75; PULSE 93; RESP 16; TEMP 36.8; O2SAT 97
[2018-12-14 19:42] VITALS: BP 134/87; PULSE 94; RESP 18; TEMP 36.7; O2SAT 98
--- NOTE | 2018-12-14 20:39 | PCM.PROGNOTE ---
Patient Problems: Active and Suspected Problems Nausea and vomiting (Acute) Hematemesis (Acute) Tachycardia (Acute) Subjective: All events the past 24 hours of been reviewed. She was started on clear liquids today by Dr. Deluna. She is afebrile. Vital signs are stable. Pulse ox is 97 to 98% saturated on room air. Hemoglobin is stable at 11.6. Potassium is low at 3.4 and calcium supplement was added to her IV lactated Ringer's today. The BUN is 15, down from 34 at admission and the creatinine today is 0.36, down from 0.46 at admission. Fractional excretion of urea is 29% which is consistent with prerenal cause. She tells me that she had menopause at 25YOA. She has had bone density tests in the past but she is not receiving any tx for osteoporosis. Denies abdominal pain, nausea, vomiting, dizziness, lightheadedness, shortness of breath, chest pain. She wants to start a diet. She was approved for clear liquids today. Objective: General: Alert, Cooperative, No apparent distress, - - She is very squires and she appears older than her stated age.....she does have squires lines and tells me that she sits out on then porch in the summer HEENT: Atraumatic, PERRLA, EOMI, Normocephalic Oral: Dry Mucosa Neck: Supple, No JVD, Negative Carotid Bruits, No Nodes, Trachea Midline Lungs: Clear to auscultation Cardiovascular: Regular Rhythm, Normal S1, Normal S2, No murmurs, No rub noted, No Gallop, Tachycardic Abdomen: Soft, Non-Distended, Hyperactive Bowel Sounds - mildly hyperactive, Tender - in the epigastric area, - - No hepatosplenomegaly or masses appreciated. Extremities: No clubbing, No cyanosis, No edema, No Calf Tenderness, Peripheral Pulses Normal Skin: No rashes Musculoskeletal: Muscle Wasting Neurological: Cranial nerves II-XII grossly intact, Neuro grossly intact Psych/Mental Status: Normal Affect, Appropriate - Physical Exam Vitals/I&O's: Vital Signs Temp Pulse Resp BP Pulse Ox 98.0 F 94 18 134/87 H 98 12/14/18 19:42 12/14/18 19:42 12/14/18 19:42 12/14/18 19:42 12/14/18 19:42 Oxygen Delivery Method Room Air Weight: 119 lb 11.376 oz Body Mass Index (BMI) 22.6 Intake and Output for Last 24 Hours 12/12/18 12/13/18 12/14/18 23:59 23:59 23:59 Intake Total 2942.08 / 2942.08 2750.67 / 2750.67 Output Total 850 / 1150 2700 / 2700 Balance 2092.08 / 1792.08 50.67 / 50.67 Microbiology Past 72 Hours 12/13/18 19:00 Stool Stool Occult Blood (YFN) - Final Occult Blood Positive 12/13/18 00:02 Vomitus Gastric Occult Blood - Final 12/12/18 23:10 Stool Stool Occult Blood (YFN) - Final Laboratory Results 12/13/18 20:07: Sodium 136, Potassium 3.3 L, Chloride 102, Carbon Dioxide 29.0, Anion Gap 5, BUN 29 H, Creatinine 0.40 L, Estim Creat Clear Calc 38.37, Est GFR (MDRD) Af Amer 200, Est GFR (MDRD) Non-Af 165, BUN/Creatinine Ratio 71.8 H, Glucose 74, Calcium 8.1 L 12/13/18 20:07: Hgb 10.7 L, Hct 33.0 L 12/13/18 23:43: Hgb 11.3 L, Hct 34.4 L 12/14/18 05:54: WBC 4.6, RBC 3.75 L, Hgb 11.6 L, Hct 35.6 L, MCV 94.9, MCH 30.9, MCHC 32.6, RDW Std Deviation 53.1 H, RDW Coeff of Vito 15.1 H, Plt Count 271, MPV 9.4 12/14/18 05:54: Sodium 136, Potassium 3.4 L, Chloride 100, Carbon Dioxide 28.0, Anion Gap 8, BUN 15, Creatinine 0.36 L, Estim Creat Clear Calc 38.37, Est GFR (MDRD) Af Amer 228, Est GFR (MDRD) Non-Af 188, BUN/Creatinine Ratio 41.7 H, Glucose 68 L, Calcium 8.1 L 12/14/18 10:00: Vitamin B12 155 L 12/14/18 10:00: Iron 43 L, TIBC 256, Iron Saturation 16.8, Ferritin 69 12/14/18 10:00: Ionized Calcium Pending, Whole Bld Vitamin B1 Pending, Zinc Pending Current Medications Acetaminophen (Tylenol) 650 mg RECTAL Q6H PRN PRN PRN Reason: Pain Or Fever > 100.7 F Last Admin: 12/14/18 03:05 Dose: 650 mg Documented by: Pantoprazole Sodium 40 mg/ (Sodium Chloride) 110 mls @ 330 mls/hr IV Q12 [facility] Last Infusion: 12/14/18 10:31 Dose: Infused Documented by: Sodium Chloride () 250 mls @ 15 mls/hr IV .[id number] PRN PRN Reason: Saline Flush Last Infusion: 12/13/18 16:03 Dose: Infused Documented by: Potassium Chloride 20 meq/ (Lactated Ringer's) 1,010 mls @ 80 mls/hr IV .[id number] [facility] Last Admin: 12/14/18 19:34 Dose: 80 mls/hr Documented by: Nutritional Formula (Lactose Free) (Ensure Clear) 120 ml PO TIDCM [facility] Last Admin: 12/14/18 16:52 Dose: 120 ml Documented by: Ondansetron HCl (Zofran) 4 mg IV Q8H PRN PRN PRN Reason: NAUSEA/VOMITING Prochlorperazine Edisylate (Compazine Iv) 5 mg IV Q4H PRN PRN PRN Reason: Breakthrough nausea/vomiting Raloxifene HCl (Evista) 60 mg PO DAILY [facility] Last Admin: 12/14/18 11:31 Dose: 60 mg Documented by: Sodium Chloride () 5 - 15 ml IV UD PRN PRN Reason: SALINE FLUSH Last Admin: 12/13/18 19:52 Dose: 10 ml Documented by: Sucralfate (Carafate) 1 gm PO 1HR_ACHS [facility] Last Admin: 12/14/18 16:52 Dose: 1 gm Documented by: Tramadol HCl (Ultram) 50 mg PO Q6H PRN PRN PRN Reason: pain 3-10 Last Admin: 12/14/18 11:35 Dose: 50 mg Documented by: Medical Necessity - Tobacco Use Smoking Status: Current every day smoker Assessment/Plan All Active Problems Nausea and vomiting (Acute) Hematemesis (Acute) Tachycardia (Acute) Impressions 1. UGI bleed due to PUD 2. History of severe osteoporosis-not on treatment. 3. Anemia secondary to acute blood loss from upper GI bleed 4. Hypokalemia-will continue to supplement 5. 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 Tobacco dependence 7. Premature menopause at 25 years of age 8. severe Malnutrition per the bed rubber. 9. B12 deficiency started on clears today. check B12, thiamine, folate, iron studies, zinc in light of Gastric bypass 22 years ago. Start a MV Start Evista for tx of osteoporosis Obtain the results of the most recent BMD from Dr. Ruvalcaba. 24 H urine for calcium is in progress. Code Visit Inpatient E&M: 05675 Subs Hosp L2
[2018-12-15] MEDS: traMADol 50 MG Tablet PO (02:29)
[2018-12-15 02:30] VITALS: BP 146/91; PULSE 94; RESP 18; TEMP 36.9; O2SAT 97
[2018-12-15] MEDS: Sucralfate 1 GM Tablet PO ×4 (06:24→22:20)
[2018-12-15 06:51] LABS: Hematocrit 31.7 % (37-47); Hemoglobin 10.6 g/dL (12.0-15.0); Mean Corp Hgb Conc 33.4 g/dL (32-36); Mean Corpuscular Hgb 30.8 pg (27.0-32.0); Mean Corpuscular Volume 92.2 fL (81-99); Mean Platelet Vol. 9.7 fl (6.2-12.0); Platelet Count 280 K/mm3 (150-450); RBC Distribution Width SD 50.7 fl (35.1-43.9); Red Blood Count 3.44 M/mm3 (4.2-5.4)
[2018-12-15 07:04] VITALS: O2SAT 96
[2018-12-15 07:07] LABS: Anion Gap 4 (5-15); BUN 6 mg/dL (7-18); BUN/Creat Ratio 20.8 RATIO (10-20); Calcium,Total 8.1 mg/dL (8.5-10.1); Chloride 100 mmol/L (98-107); Creatinine, Serum 0.29 mg/dL (0.55-1.02); EST Glomerular Filtration Rate 243 mL/min (>60); Est Glom Filt Rate - Afr Amer 294 mL/min (>60); Estimated Creatinine Clearance 38.37 ml/min; Glucose 78 mg/dL (74-106); Potassium 3.7 mmol/L (3.5-5.1); Sodium Level 132 mmol/L (136-145)
--- NOTE | 2018-12-15 07:45 | PN_ITS ---
Patient Problems: Active and Suspected Problems Nausea and vomiting (Acute) Hematemesis (Acute) Tachycardia (Acute) Subjective: All events of the past 24 hours been reviewed. She is afebrile and vital signs are stable. Slaughter she is maintaining an oxygen saturation of 97 to 98% on room air. Fluid balance since admission is +302. She had 4700 cc of urine output on 12/14/2018. All lab was personally reviewed. Hemoglobin is 10.6 today, down from 11.6 on 12/14/2018. Platelets are within normal limits. Sodium is mildly decreased at 132 and the potassium is normal at 3.7 today. The BUN is 6, down from 29 at admission and her creatinine is 0.29. Serum iron was low at 43 and the TIBC was low at 256. The iron saturation and ferritin were within normal limits. B12 is low at 155. Zinc is pending and B1 is pending as well. She denies abdominal pain, nausea, emesis, shortness of breath, lightheadedness. The 24-hour urine calcium is high at 281.2. Tolerating the Evista. No heartburn, CP. Objective: PHYSICAL EXAM: GENERAL: alert, oriented X 3, Cooperative, NAD, pleasant ans talkative ORAL: moist mucosa, no mucosal lesions NECK: No JVD, supple, trachea midline LUNGS: CTA, symmetric chest expansion HEART: RRR, Normal S1 and S2, no rub, no gallop ABDOMEN: soft, NT, ND, BS present and not hyperactive, no guarding with palpation EXTREMITIES: no edema, no cyanosis, no calf tenderness SKIN: No rashes, no breakdown NEUROLOGIC: no focal neurologic deficits PSYCH: appropriate, normal affect, pleasant - Physical Exam Vitals/I&O's: Vital Signs Temp Pulse Resp BP Pulse Ox 98.4 F 94 18 146/91 H 96 12/15/18 02:30 12/15/18 02:30 12/15/18 02:30 12/15/18 02:30 12/15/18 07:04 Oxygen Delivery Method Room Air Weight: 119 lb 11.376 oz Body Mass Index (BMI) 22.6 Intake and Output for Last 24 Hours 12/13/18 12/14/18 12/15/18 23:59 23:59 23:59 Intake Total 2942.08 / 2942.08 3026.00 / 3026.00 684 / 684 Output Total 850 / 1150 4700 / 4700 800 / 800 Balance 2092.08 / 1792.08 -1674.00 / -1674.00 -116 / -116 Microbiology Past 72 Hours 12/13/18 19:00 Stool Stool Occult Blood (YFN) - Final Occult Blood Positive 12/13/18 00:02 Vomitus Gastric Occult Blood - Final 12/12/18 23:10 Stool Stool Occult Blood (YFN) - Final Laboratory Results 12/14/18 10:00: Vitamin B12 155 L 12/14/18 10:00: Iron 43 L, TIBC 256, Iron Saturation 16.8, Ferritin 69 12/14/18 10:00: Ionized Calcium Pending, Whole Bld Vitamin B1 Pending, Zinc Pending 12/15/18 06:12: WBC 4.0 L, RBC 3.44 L, Hgb 10.6 L, Hct 31.7 L, MCV 92.2, MCH 30.8, MCHC 33.4, RDW Std Deviation 50.7 H, RDW Coeff of Vito 15.0 H, Plt Count 280, MPV 9.7 12/15/18 06:12: Sodium 132 L, Potassium 3.7, Chloride 100, Carbon Dioxide 28.0, Anion Gap 4 L, BUN 6 L, Creatinine 0.29 L, Estim Creat Clear Calc 38.37, Est GFR (MDRD) Af Amer 294, Est GFR (MDRD) Non-Af 243, BUN/Creatinine Ratio 20.8 H, Glucose 78, Calcium 8.1 L Current Medications Acetaminophen (Tylenol) 650 mg RECTAL Q6H PRN PRN PRN Reason: Pain Or Fever > 100.7 F Last Admin: 12/14/18 03:05 Dose: 650 mg Documented by: Cyanocobalamin (Vitamin B12) 1,000 mcg SC DAILY [facility] Stop: 12/21/18 10:01 Pantoprazole Sodium 40 mg/ (Sodium Chloride) 110 mls @ 330 mls/hr IV Q12 [facility] Last Infusion: 12/14/18 21:58 Dose: Infused Documented by: Sodium Chloride () 250 mls @ 15 mls/hr IV .[id number] PRN PRN Reason: Saline Flush Last Infusion: 12/13/18 16:03 Dose: Infused Documented by: Potassium Chloride 20 meq/ (Lactated Ringer's) 1,010 mls @ 80 mls/hr IV .[id number] [facility] Last Admin: 12/15/18 06:31 Dose: 80 mls/hr Documented by: Melatonin (Melatonin) 3 mg PO QHS PRN PRN PRN Reason: INSOMNIA Multivitamins/Minerals (Multivitamin With Minerals) 1 tablet PO DAILYCM [facility] Nutritional Formula (Lactose Free) (Ensure Clear) 120 ml PO TIDCM [facility] Last Admin: 12/14/18 16:52 Dose: 120 ml Documented by: Ondansetron HCl (Zofran) 4 mg IV Q8H PRN PRN PRN Reason: NAUSEA/VOMITING Prochlorperazine Edisylate (Compazine Iv) 5 mg IV Q4H PRN PRN PRN Reason: Breakthrough nausea/vomiting Raloxifene HCl (Evista) 60 mg PO DAILY [facility] Last Admin: 12/14/18 11:31 Dose: 60 mg Documented by: Sodium Chloride () 5 - 15 ml IV UD PRN PRN Reason: SALINE FLUSH Last Admin: 12/13/18 19:52 Dose: 10 ml Documented by: Sucralfate (Carafate) 1 gm PO 1HR_ACHS [facility] Last Admin: 12/15/18 06:24 Dose: 1 gm Documented by: Tramadol HCl (Ultram) 50 mg PO Q6H PRN PRN PRN Reason: pain 3-10 Last Admin: 12/15/18 02:29 Dose: 50 mg Documented by: Medical Necessity - Tobacco Use Smoking Status: Current every day smoker Assessment/Plan All Active Problems Nausea and vomiting (Acute) Hematemesis (Acute) Tachycardia (Acute) Impressions 1. UGI bleed due to PUD 2. History of severe osteoporosis-not on treatment. Started on Evista, calcium and vitamin D. 3. Anemia secondary to acute blood loss from upper GI bleed 4. Hypokalemia-will continue to supplement 5. 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 Tobacco dependence - smoking cessation counselling given. Nicotine patch offered, pt refused. 7. Premature menopause at 25 years of age 8. 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 Nutritional supplements ordered 9. B12 deficiency-supplementation ordered Advanced to full liquids today. If Dr. Deluna is not planning on a second look EGD will likely DC tomorrow if the HH remains stable Recheck the lab in the AM Code Visit Inpatient E&M: 08796 Subs Hosp L2
--- NOTE | 2018-12-15 08:16 | PCA ---
got records from [facility] put in patient chart
[2018-12-15 10:00] VITALS: BP 146/91; PULSE 99; RESP 18; TEMP 36.7; O2SAT 99
[2018-12-15] MEDS: Raloxifene HCl 60 MG Tablet PO (10:27)
[2018-12-15] MEDS: Multivitamins,Ther W-Minerals Tablet 1 TABLET PO (10:35)
[2018-12-15] MEDS: Ensure Clear 120 ML Liquid PO ×3 (10:40→16:38)
[2018-12-15] MEDS: Cyanocobalamin (B12) 1,000 MCG/ML Vial 1000 MCG SC (10:53)
[2018-12-15 16:00] VITALS: BP 131/74; PULSE 96; RESP 16; TEMP 36.9; O2SAT 99
--- NOTE | 2018-12-15 19:35 | PN.SURG_ITS ---
Patient Problems: Active and Suspected Problems Nausea and vomiting (Acute) Hematemesis (Acute) Tachycardia (Acute) Subjective: no further bleeding, no abdominal complaints - Physical Exam Vitals/I&O's: Vital Signs Temp Pulse Resp BP Pulse Ox 98.5 F 96 16 131/74 H 99 12/15/18 16:00 12/15/18 16:00 12/15/18 16:00 12/15/18 16:00 12/15/18 16:00 Oxygen Delivery Method Room Air Weight: 54.3 kg Body Mass Index (BMI) 22.6 Intake and Output for Last 24 Hours 12/13/18 12/14/18 12/15/18 23:59 23:59 23:59 Intake Total 2942.08 / 2942.08 3026.00 / 3026.00 1804 / 1804 Output Total 850 / 1150 4700 / 4700 1999 Balance 2092.08 / 1792.08 -1674.00 / -1674.00 -196 / -196 General: Alert, Oriented x3, Cooperative Lungs: Clear to auscultation, Normal air movement Cardiovascular: Regular rate, No murmurs Abdomen: Bowel Sounds Present, Soft, Non Tender Microbiology Past 72 Hours 12/13/18 19:00 Stool Stool Occult Blood (YFN) - Final Occult Blood Positive 12/13/18 00:02 Vomitus Gastric Occult Blood - Final 12/12/18 23:10 Stool Stool Occult Blood (YFN) - Final Laboratory Results 12/15/18 06:12: WBC 4.0 L, RBC 3.44 L, Hgb 10.6 L, Hct 31.7 L, MCV 92.2, MCH 30.8, MCHC 33.4, RDW Std Deviation 50.7 H, RDW Coeff of Vito 15.0 H, Plt Count 280, MPV 9.7 12/15/18 06:12: Sodium 132 L, Potassium 3.7, Chloride 100, Carbon Dioxide 28.0, Anion Gap 4 L, BUN 6 L, Creatinine 0.29 L, Estim Creat Clear Calc 38.37, Est GFR (MDRD) Af Amer 294, Est GFR (MDRD) Non-Af 243, BUN/Creatinine Ratio 20.8 H, Glucose 78, Calcium 8.1 L 12/15/18 06:12: Folate 17.50 12/15/18 17:59: Urine pH Pending, Urine Collection Time Pending, Urine Total Volume Pending, Urine Calcium Pending, Ur Calcium 24 Hr Pending Current Medications Acetaminophen (Tylenol) 650 mg RECTAL Q6H PRN PRN PRN Reason: Pain Or Fever > 100.7 F Last Admin: 12/14/18 03:05 Dose: 650 mg Documented by: Cyanocobalamin (Vitamin B12) 1,000 mcg SC DAILY [facility] Stop: 12/21/18 10:01 Last Admin: 12/15/18 10:53 Dose: 1,000 mcg Documented by: Pantoprazole Sodium 40 mg/ (Sodium Chloride) 110 mls @ 330 mls/hr IV Q12 [facility] Last Infusion: 12/15/18 10:45 Dose: Infused Documented by: Sodium Chloride () 250 mls @ 15 mls/hr IV .[id number] PRN PRN Reason: Saline Flush Last Infusion: 12/13/18 16:03 Dose: Infused Documented by: Melatonin (Melatonin) 3 mg PO QHS PRN PRN PRN Reason: INSOMNIA Multivitamins/Minerals (Multivitamin With Minerals) 1 tablet PO DAILYCM [facility] Last Admin: 12/15/18 10:35 Dose: 1 tablet Documented by: Nutritional Formula (Lactose Free) (Ensure Clear) 120 ml PO TIDCM [facility] Last Admin: 12/15/18 16:38 Dose: 120 ml Documented by: Ondansetron HCl (Zofran) 4 mg IV Q8H PRN PRN PRN Reason: NAUSEA/VOMITING Prochlorperazine Edisylate (Compazine Iv) 5 mg IV Q4H PRN PRN PRN Reason: Breakthrough nausea/vomiting Raloxifene HCl (Evista) 60 mg PO DAILY [facility] Last Admin: 12/15/18 10:27 Dose: 60 mg Documented by: Sodium Chloride () 5 - 15 ml IV UD PRN PRN Reason: SALINE FLUSH Last Admin: 12/13/18 19:52 Dose: 10 ml Documented by: Sucralfate (Carafate) 1 gm PO 1HR_ACHS [facility] Last Admin: 12/15/18 16:38 Dose: 1 gm Documented by: Tramadol HCl (Ultram) 50 mg PO Q6H PRN PRN PRN Reason: pain 3-10 Last Admin: 10/24/19 02:29 Dose: 50 mg Documented by: Medical Necessity - Tobacco Use Smoking Status: Current every day smoker Assessment/Plan All Active Problems Nausea and vomiting (Acute) Hematemesis (Acute) Tachycardia (Acute) nausea, vomiting, coffee-ground emesis-previous gastric bypass surgery, tobacco use, NSAID use upper endoscopy demonstrated marginal ulceration with bleeding - controlled with epinephrine and argon coagulation. Hgb slightly decreased since yesterday but no clinical signs of bleeding and likely delusional based on ins and outs - OK to advance diet. will sign off patient for now, please contact me if any further concerning is sues.
[2018-12-15 19:42] LABS: (24 HR) Urine Calcium 281.2 mg/24 HR (42.0-353.0); 24HR UR TOTAL VOLUME 3700 ml; Calcium Urine pH Range 2; Urine Calcium (Random) 7.6 (Not Estab.)
[2018-12-15 22:18] VITALS: BP 126/86; PULSE 95; RESP 16; TEMP 37.1; O2SAT 97
[2018-12-15] MEDS: MELATONIN 3 MG TABLET PO (22:31)
[2018-12-15] MEDS: 0.9% Saline Lock 10 ML Syringe IV (23:16)
[2018-12-16 03:35] VITALS: BP 139/72; PULSE 93; RESP 16; TEMP 36.9; O2SAT 97
[2018-12-16] MEDS: Sucralfate 1 GM Tablet PO ×2 (06:02→11:36)
[2018-12-16 07:05] LABS: Hematocrit 35.1 % (37-47); Hemoglobin 11.6 g/dL (12.0-15.0)
[2018-12-16 07:30] VITALS: O2SAT 97
[2018-12-16 07:30] LABS: Anion Gap 5 (5-15); BUN 7 mg/dL (7-18); BUN/Creat Ratio 18.5 RATIO (10-20); Calcium,Total 8.1 mg/dL (8.5-10.1); Chloride 100 mmol/L (98-107); Creatinine, Serum 0.38 mg/dL (0.55-1.02); EST Glomerular Filtration Rate 177 mL/min (>60); Est Glom Filt Rate - Afr Amer 215 mL/min (>60); Estimated Creatinine Clearance 38.37 ml/min; Glucose 85 mg/dL (74-106); Sodium Level 132 mmol/L (136-145)
[2018-12-16 08:14] VITALS: BP 137/85; PULSE 97; RESP 16; TEMP 36.6; O2SAT 99
[2018-12-16 08:24] VITALS: PULSE 97; O2SAT 99
[2018-12-16] MEDS: Ensure Clear 120 ML Liquid PO (08:56)
[2018-12-16] MEDS: Calcium Carb/Vitamin D 1 TABLET Tablet PO (08:58)
[2018-12-16] MEDS: Multivitamins,Ther W-Minerals Tablet 1 TABLET PO (09:01)
[2018-12-16] MEDS: Raloxifene HCl 60 MG Tablet PO (09:01)
[2018-12-16] MEDS: hydroCHLOROthiazide 12.5mg 12.5 MG PO (09:02)
[2018-12-16] MEDS: Cyanocobalamin (B12) 1,000 MCG/ML Vial 1000 MCG SC (09:03)
[2018-12-16] MEDS: 0.9% Saline Lock 10 ML Syringe IV (09:17)
[2018-12-16 12:01] VITALS: BP 132/85; PULSE 92; RESP 20; TEMP 36.8; O2SAT 100
--- NOTE | 2018-12-16 12:02 | PCM.DC ---
- Discharge Diagnoses Current Active Problems: Current Active and Chronic Problems Tobacco abuse (Chronic) Nausea and vomiting (Acute) Osteoporosis (Chronic) Depression (Chronic) Hematemesis (Acute) Tachycardia (Acute) You will use the following diet at home:: Other - no caffeine, no milk products(whey is a milk product) OK to have cashew milk, almond milk, soy milk Your food should be the consistency of: Mechanical soft (ground) Discharge Activity: Return to Normal Activity Call your doctor if you observe: Fever of 101 or Higher, Shortness of breath, Dizziness, Fainting spells, Swelling in the ankles, Chest pain, - - vomiting blood, blood per rectum, black tarry stool, abd pain Instructions: Low-Residue Diet, After Gastric Bypass: Nutrition Guidelines Additional Instructions: 1. I have started you on a medication called Evista. This medication treats osteoporosis. You will take it every day. 2. You had an ulcer in the stomach and at the site of the anastomosis for the gastric bypass. Dr. Deluna cauterized the bleeders and you will need to follow up with him in 1-2 weeks. I have given you prescriptions for Carafate and Protonix to take to heal the ulcer. 3. you are B12 deficient and this is contributing to making you tired. I have given you a prescription for a vitamin B12 supplement to take. You should have a B12 level rechecked in 4 weeks and if the level is stil low you will likely need to get a monthly injection of B12. The gastric bypass interferes with absorption of this bacteria in the intestine. 4. you have too much calcium being excreted in the urine and this contributes to bone loss. I have started you on a medication called HCTZ(Hydrochlorothiazide). This medication causes increased absorption of calcium from the urine. 5. I also have given you a prescription for Tramadol which is the medication you had for pain in the hospital. you can take 1 every 6 hours as needed for pain. 6. Smoking increases bone loss.......you should stop. Pending Tests on Discharge: zinc and B1 Allergies/Adverse Reactions: Allergies No Known Allergies Allergy (Verified 12/12/18 22:23) Medications to take at Discharge Calcium Carb/Vitamin D [Os-Jonnie 500MG + D] 1 tablet PO BIDCM tablet 12/16/18 Cyanocobalamin (Vitamin B-12) [Vitamin B-12] 1,000 mcg PO BID #60 tab 12/16/18 Multivitamins,Ther W-Minerals [Multivitamin With Minerals] 1 tab PO DAILYCM #30 tab 12/16/18 Pantoprazole Sodium [Protonix] 40 mg PO BID #60 tab 12/16/18 Raloxifene HCl [Evista] 60 mg PO DAILY #30 tab 12/16/18 Sucralfate [Carafate] 1 gm PO 1HR_ACHS #120 tab 12/16/18 hydroCHLOROthiazide [Hydrochlorothiazide] 12.5 mg PO DAILY #30 cap 12/16/18 traMADol [Ultram] 50 mg PO Q6H PRN PRN #30 tablet 12/16/18 The following prescriptions were given: Sucralfate [Carafate] 1 gm PO 1HR_ACHS #120 tab Transmission Status: Pending to [facility] Raloxifene HCl [Evista] 60 mg PO DAILY #30 tab Transmission Status: Pending to [facility] hydroCHLOROthiazide [Hydrochlorothiazide] 12.5 mg PO DAILY #30 cap Transmission Status: Pending to [facility] Multivitamins,Ther W-Minerals [Multivitamin With Minerals] 1 tab PO DAILYCM #30 tab Transmission Status: Pending to [facility] Pantoprazole Sodium [Protonix] 40 mg PO BID #60 tab Transmission Status: Pending to [facility] traMADol [Ultram] 50 mg PO Q6H PRN PRN #30 tablet PRN Reason: pain 3-10 Transmission Status: Sent to [facility] Cyanocobalamin (Vitamin B-12) [Vitamin B-12] 1,000 mcg PO BID #60 tab Transmission Status: Pending to [facility] Primary Care Physician: Selvin Ca Chi, MD [Primary Care Provider] - Test Results: Test results from this visit will be discussed in further detail at your follow-up appointment, if applicable. Please Follow Up With: Erik Deluna MD When: 1-2 weeks Proposed Discharge Date: 12/16/18
--- NOTE | 2018-12-16 12:25 | PCM.DC.SUM ---
Discharge Date and Diagnosis Date of Admission: 12/13/18 Date of Discharge: 12/16/18 - Primary Discharge Diagnosis Active and Suspected Problems Upper gastrointestinal bleed (Acute) due to PUD PUD (peptic ulcer disease) (Acute) Anemia (Acute) due to acute blood loss Tachycardia (Acute) - Secondary Discharge Diagnosis Chronic Problems Severe protein-calorie malnutrition (Chronic) B12 deficiency (Chronic) Tobacco abuse (Chronic) Osteoporosis (Chronic) Depression (Chronic) Hospital Course and Treatment Imaging Results: Clinical Impression(s) from Imaging Studies Abdomen/Pelvis CT 12/12/18 23:29 IMPRESSION: Previous cholecystectomy or dilated intrahepatic biliary radicles and a prominent common bile duct Old compression fractures involving the superior endplates of T12, L2, L3 and L4 and a healing fracture involving the right iliac bone. Pelvic congestion syndrome demonstrated by numerous dilated and tortuous pelvic veins Electronically Signed: Kolton Stephen MD at 2:32 EDT Tel , Service support , Microbiology 12/13/18 19:00 Stool Stool Occult Blood (YFN) - Final Occult Blood Positive 12/13/18 00:02 Vomitus Gastric Occult Blood - Final 12/12/18 23:10 Stool Stool Occult Blood (YFN) - Final Dr. Erik Deluna-[facility] general surgery Operations: None Procedures: EGD - Impressions : - Jejunal blood. - Gastric bypass with a normal-sized pouch and intact staple line. Gastrojejunal anastomosis characterized by ulceration. - Spurting gastric ulcer with oozing hemorrhage (David Class Ib). Injected. Treated with argon plasma coagulation (APC). - Normal esophagus. - No specimens collected. 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 She later revealed that she had a [employer] coffee with oreo's and it prior to coming to the emergency department. Gastroccult was negative. Onset of sx was approximately 3 days ago prior to coming to the ED and the N/V was associated with abdominal discomfort and pain. She denied chest pain, shortness of breath and fevers/ chills. Laboratory studies showed a hemoglobin of 13 of the gastroccult was negative. The patient denied history of GERD and PUD. She was admitted to the hospital with a diagnosis of suspected upper GI bleed and Dr. Deluna was consulted for endoscopy. She was started on a Protonix infusion. She was taken for endoscopy on 12/13/2018 and this showed blood in the jejunum, gastric bypass with a normal-sized pouch and intact staple line and a gastrojejunal anastomosis characterized by ulceration. There was also a spurting gastric ulcer with oozing hemorrhage and this was injected and then treated with argon plasma coagulation. The continuous Protonix infusion was continued postoperatively and carafate was added to the drug regimen. She was kept n.p.o. for 24 hours. The following day she was started on clear liquids and tolerated this well without any recurrence of abdominal pain, nausea or vomiting. Hemoglobin was 11.6 and this remained stable throughout the course of her hospital admission. Her diet was advanced to a full liquids with no recurrence of symptom. She was transitioned to oral Protonix 40 mg twice daily. she was discharged home on 12/16/2018 with a stable hemoglobin and stable vital signs. She was instructed to follow-up with Dr. Ca going forward and with Dr. Deluna in 1 to 2 weeks. While in the hospital she had a W/U for secondary causes of osteoporosis. The vitamin D level was low normal at 35.4. Calcium was low at 8.1. A 24-hour urine for quantitative calcium excretion was greater than 200 and she was started on low-dose hydrochlorothiazide to conserve calcium in the kidney. She was started on Evista 60 mg daily to treat osteoporosis. Bisphosphonates were not considered secondary to GERD and peptic ulcer disease. She will also take calcium plus vitamin D at discharge. Smoking cessation was advised since this promotes bone loss among other adverse effects. Vitamin levels were checked because of the history of gastric bypass surgery and the fact that she is not taking vitamins. The vitamin B12 was found to be low at 155 and she was started on B12 supplementation. Folate level was normal at 17.5 and the B1 and zinc are still pending at the time of discharge. We were not able to obtain a copy of the most recent BMD from Dr. Hernandez but, I would continue to try and obtain this information and repeat a DEXA 12-24 months after starting Evista. General: Alert, Cooperative, No apparent distress HEENT: Atraumatic, PERRLA, EOMI, Normocephalic Oral: moist Mucosa Neck: Supple, No JVD, Negative Carotid Bruits, No Nodes, Trachea Midline Lungs: Clear to auscultation Cardiovascular: Regular Rhythm, Normal S1, Normal S2, No murmurs, No rub noted, No Gallop, Tachycardic Abdomen: Soft, Non-Distended, normal BS's, nontender and no guarding with palpation Extremities: No clubbing, No cyanosis, No edema, No Calf Tenderness, Peripheral Pulses Normal Skin: No rashes Musculoskeletal: Muscle Wasting Neurological: Cranial nerves II-XII grossly intact, Neuro grossly intact Psych/Mental Status: Normal Affect, Appropriate This note was generated with [employer] dictation software. It may contain incorrect words, spelling, and punctuation that were not noted in checking the note before signing. - Physical Exam Vitals/I&O's: Vital Signs Temp Pulse Resp BP Pulse Ox 98.3 F 92 20 H 132/85 H 100 12/16/18 12:01 12/16/18 12:01 12/16/18 12:01 12/16/18 12:01 12/16/18 12:01 Oxygen Delivery Method Room Air Weight: 119 lb 11.376 oz Body Mass Index (BMI) 22.6 Intake and Output for Last 24 Hours 12/14/18 12/15/18 12/16/18 23:59 23:59 23:59 Intake Total 3026.00 / 3026.00 2223.25 / 2223.25 590 / 590 Output Total 4700 / 4700 1999 / 1999 Balance -1674.00 / -1674.00 223.25 / 223.25 590 / 590 Microbiology Past 72 Hours 12/13/18 19:00 Stool Stool Occult Blood (YFN) - Final Occult Blood Positive Laboratory Results 12/15/18 17:59: Urine pH 2, Urine Collection Time 24.0, Urine Total Volume 3700, Urine Calcium 7.6, Ur Calcium 24 Hr 281.2 12/16/18 06:40: Hgb 11.6 L, Hct 35.1 L 12/16/18 06:40: Sodium 132 L, Potassium 4.0, Chloride 100, Carbon Dioxide 27.0, Anion Gap 5, BUN 7, Creatinine 0.38 L, Estim Creat Clear Calc 38.37, Est GFR (MDRD) Af Amer 215, Est GFR (MDRD) Non-Af 177, BUN/Creatinine Ratio 18.5, Glucose 85, Calcium 8.1 L Current Medications Acetaminophen (Tylenol) 650 mg RECTAL Q6H PRN PRN PRN Reason: Pain Or Fever > 100.7 F Last Admin: 12/14/18 03:05 Dose: 650 mg Documented by: Calcium/Vitamin D (Os-Jonnie 500mg + D) [facility] Last Admin: 12/16/18 08:58 Dose: 1 tablet Documented by: Cyanocobalamin (Vitamin B12) 1,000 mcg SC DAILY [facility] Stop: 12/21/18 10:01 Last Admin: 12/16/18 09:03 Dose: 1,000 mcg Documented by: Hydrochlorothiazide () 12.5 mg PO DAILY [facility] Last Admin: 12/16/18 09:02 Dose: 12.5 mg Documented by: Pantoprazole Sodium 40 mg/ (Sodium Chloride) 110 mls @ 330 mls/hr IV Q12 [facility] Last Infusion: 12/16/18 09:32 Dose: Infused Documented by: Sodium Chloride () 250 mls @ 15 mls/hr IV .[id number] PRN PRN Reason: Saline Flush Last Infusion: 12/16/18 12:09 Dose: Infused Documented by: Melatonin (Melatonin) 3 mg PO QHS PRN PRN PRN Reason: INSOMNIA Last Admin: 12/15/18 22:31 Dose: 3 mg Documented by: Multivitamins/Minerals (Multivitamin With Minerals) [facility] Last Admin: 12/16/18 09:01 Dose: 1 tablet Documented by: Nutritional Formula (Lactose Free) (Ensure Clear) 120 ml PO TIDCM [facility] Last Admin: 12/16/18 11:37 Dose: Not Given Documented by: Ondansetron HCl (Zofran) 4 mg IV Q8H PRN PRN PRN Reason: NAUSEA/VOMITING Prochlorperazine Edisylate (Compazine Iv) 5 mg IV Q4H PRN PRN PRN Reason: Breakthrough nausea/vomiting Raloxifene HCl (Evista) 60 mg PO DAILY [facility] Last Admin: 12/16/18 09:01 Dose: 60 mg Documented by: Sodium Chloride () 5 - 15 ml IV UD PRN PRN Reason: SALINE FLUSH Last Admin: 12/16/18 09:17 Dose: 5 ml Documented by: Sucralfate (Carafate) 1 gm PO 1HR_ACHS ROCIO Last Admin: 12/16/18 11:36 Dose: 1 gm Documented by: Tramadol HCl (Ultram) 50 mg PO Q6H PRN PRN PRN Reason: pain 3-10 Last Admin: 12/15/18 02:29 Dose: 50 mg Documented by: Discharge Activity: Return to Normal Activity Call your doctor if you observe: Fever of 101 or Higher, Shortness of breath, Dizziness, Fainting spells, Swelling in the ankles, Chest pain, - - vomiting blood, blood per rectum, black tarry stool, abd pain Home Medications: Medications to take at Discharge Calcium Carb/Vitamin D [Os-Jonnie 500MG + D] 1 tab PO BIDCM tab 12/16/18 Cyanocobalamin (Vitamin B-12) [Vitamin B-12] 1,000 mcg PO BID #60 tab 12/16/18 Multivitamins,Ther W-Minerals [Multivitamin With Minerals] 1 tab PO DAILYCM #30 tab 12/16/18 Pantoprazole Sodium [Protonix] 40 mg PO BID #60 tab 12/16/18 Raloxifene HCl [Evista] 60 mg PO DAILY #30 tab 12/16/18 Sucralfate [Carafate] 1 gm PO 1HR_ACHS #120 tab 12/16/18 hydroCHLOROthiazide [Hydrochlorothiazide] 12.5 mg PO DAILY #30 cap 12/16/18 traMADol [Ultram] 50 mg PO Q6H PRN PRN #30 tab 12/16/18 Following Prescrptions Were Given to Patient: Sucralfate [Carafate] 1 gm PO 1HR_ACHS #120 tab Transmission Status: Received by [facility] Raloxifene HCl [Evista] 60 mg PO DAILY #30 tab Transmission Status: Received by [facility] hydroCHLOROthiazide [Hydrochlorothiazide] 12.5 mg PO DAILY #30 cap Transmission Status: Received by [facility] Multivitamins,Ther W-Minerals [Multivitamin With Minerals] 1 tab PO DAILYCM #30 tab Transmission Status: Received by [facility] Pantoprazole Sodium [Protonix] 40 mg PO BID #60 tab Transmission Status: Received by [facility] traMADol [Ultram] 50 mg PO Q6H PRN PRN #30 tab PRN Reason: pain 3-10 Transmission Status: Received by [facility] Cyanocobalamin (Vitamin B-12) [Vitamin B-12] 1,000 mcg PO BID #60 tab Transmission Status: Received by [facility] Primary Care Physician: Selvin Ca Chi, MD [Primary Care Provider] - Please Follow Up With: Erik Deluna MD When: 1-2 weeks Patient Instructions: Low-Residue Diet, After Gastric Bypass: Nutrition Guidelines Disposition: Home Minutes spent on discharge:: 30 Patient Condition:: Good Medical Necessity - Tobacco Use Smoking Status: Current every day smoker Tobacco Use: Cigarettes Meaningful Use Info Meaningful Use Diagnoses (Choose all that apply): None applicable Code Visit Inpatient E&M: 28300 Disch Hosp
[2018-12-16 14:50] VITALS: BP 122/72; PULSE 100; RESP 16; TEMP 36.7; O2SAT 96
[2018-12-17 05:06] LABS: Vitamin B1, Thiamine 83.2 nmol/L (66.5-200.0)
[2018-12-19 10:28] LABS: Zinc, Plasma or Serum 67 ug/dL (56-134)
== END 2018-12-16 15:50 | disposition home or self-care (01) | DRG 377 ==
LOC: ED 22:53 → MS3 12-13 03:18
PROVIDERS: Surgery; Admitting Provider Family Medicine; Emergency Provider Emergency Medicine; Family Provider Family Medicine Geriatric Medicine; PCP Family Medicine Geriatric Medicine; Visit Provider Internal Medicine
PROC: 0DJ08ZZ Inspection of Upper Intestinal Tract, Via Natural or Artificial Opening Endoscopic (ICD-10-PCS; CPT 43235; principal; 2018-12-13 13:10)
DX: K28.4 Chronic or unspecified gastrojejunal ulcer with hemorrhage (principal); E43 Unspecified severe protein-calorie malnutrition; D62 Acute posthemorrhagic anemia; M81.0 Age-related osteoporosis without current pathological fracture; E87.6 Hypokalemia; F17.210 Nicotine dependence, cigarettes, uncomplicated; E53.8 Deficiency of other specified B group vitamins; R00.0 Tachycardia, unspecified; F32.9 Major depressive disorder, single episode, unspecified; Z68.22 Body mass index [BMI] 22.0-22.9, adult; R06.02 Shortness of breath
CPT/HCPCS: 36415; 74177; 80048; 80053; 80307; 81001; 82271; 82274; 82306; 82330; 82340; 82570; 82607; 82728; 82746; 83540; 83550; 83605; 83690; 83735; 83970; 84100; 84300; 84425; 84484; 84540; 84630; 85014; 85018; 85025; 85027; 85610; 85730; 86850; 86900; 86901; 93005; 94060; 94726; 94729; 97802; 99284; 99406; G0297; J7030; J7040; J7050; J7120; Q9967; A4216; J2405; J3420; J3490

== ENCOUNTER → 2018-12-28 11:18 | Outpatient (CLI) | payer MEDICARE, BC, SELFPAY ==
[2018-12-13 03:40] VITALS: BMI 22.6
[2018-12-28 13:14] LABS: Absolute Lymphocyte Count 1.15 X10^3/uL (0.83-4.51); Absolute Neutrophil Count 3.7 X10^3/uL (2.0-7.7); Eosinophil# 0.02 X10^3/uL; Eosinophils% 0.4 % (0-5); Hemoglobin 13.1 g/dL (12.0-15.0); Lymphocyte # 1.15 X10^3/ul (4.0); Lymphocyte % 21.6 % (19-41); Mean Corpuscular Hgb 30.8 pg (27.0-32.0); Mean Corpuscular Volume 96.5 fL (81-99); Mean Platelet Vol. 9.4 fl (6.2-12.0); Monocyte% 7.5 % (0-10); NRBC Flagged by Analyzer 0 % (0-5); Neutrophil # 3.74 X10^3/uL (2.7-7.7); Neutrophil % 70.1 % (47-70); Platelet Count 463 K/mm3 (150-450); RBC Distribution Width CV 15.3 % (11.6-14.6); RBC Distribution Width SD 54.2 fl (35.1-43.9); Red Blood Count 4.25 M/mm3 (4.2-5.4); White Blood Count 5.3 K/mm3 (4.4-11.0)
== END ==
PROVIDERS: Family Provider Family Medicine Geriatric Medicine; PCP Family Medicine Geriatric Medicine; Visit Provider Family Medicine Geriatric Medicine
DX: D64.9 Anemia, unspecified (principal)
CPT/HCPCS: 36415; 85025

== ENCOUNTER → 2019-03-08 12:08 | Outpatient (CLI) | payer MEDICARE, SELFPAY ==
[2018-12-13 03:40] VITALS: BMI 22.6
[2019-03-08 13:34] LABS: Absolute Lymphocyte Count 1.33 X10^3/uL (0.83-4.51); Absolute Neutrophil Count 2.7 X10^3/uL (2.0-7.7); Eosinophil# 0.04 X10^3/uL; Eosinophils% 0.9 % (0-5); Hematocrit 45.4 % (37-47); Hemoglobin 14.1 g/dL (12.0-15.0); Lymphocyte # 1.33 X10^3/ul (4.0); Lymphocyte % 28.6 % (19-41); Mean Corp Hgb Conc 31.1 g/dL (32-36); Mean Corpuscular Hgb 27.8 pg (27.0-32.0); Mean Corpuscular Volume 89.4 fL (81-99); Monocyte# 0.55 X10^3/uL; Monocyte% 11.8 % (0-10); NRBC Flagged by Analyzer 0 % (0-5); Neutrophil # 2.72 X10^3/uL (2.7-7.7); Neutrophil % 58.5 % (47-70); Platelet Count 343 K/mm3 (150-450); RBC Distribution Width CV 13.1 % (11.6-14.6); RBC Distribution Width SD 43.1 fl (35.1-43.9); Red Blood Count 5.08 M/mm3 (4.2-5.4); White Blood Count 4.7 K/mm3 (4.4-11.0)
[2019-03-08 13:53] LABS: Vitamin D,25 Hydroxy 27.9 ng/mL (29.95-100.01)
[2019-03-08 13:59] LABS: ALB/GLOB Ratio 0.8 RATIO (0.9-2.4); AST(SGOT) 19 U/L (15-37); Alanine Aminotransfer ALT/SGPT 28 U/L (13-56); Albumin, Serum 3.2 g/dL (3.2-5.0); Alkaline Phosphatase 146 U/L (45-117); Anion Gap 4 (5-15); BUN 13 mg/dL (7-18); BUN/Creat Ratio 20.6 RATIO (10-20); Chloride 98 mmol/L (98-107); Creatinine, Serum 0.63 mg/dL (0.55-1.02); EST Glomerular Filtration Rate 98 mL/min (>60); Est Glom Filt Rate - Afr Amer 119 mL/min (>60); Globulin 3.8 g/dL (2.2-4.2); Glucose 82 mg/dL (74-106); Potassium 4.4 mmol/L (3.5-5.1); Sodium Level 133 mmol/L (136-145); Thyroid Stim Hormone (TSH) 0.92 uIU/mL (0.358-3.74)
== END ==
PROVIDERS: Family Provider Family Medicine Geriatric Medicine; PCP Family Medicine Geriatric Medicine; Visit Provider Family Medicine Geriatric Medicine
DX: E55.9 Vitamin D deficiency, unspecified (principal); R53.83 Other fatigue
CPT/HCPCS: 36415; 80053; 82306; 84443; 85025

== ENCOUNTER → 2019-09-22 09:09 | Outpatient (CLI) | payer MEDICARE, SELFPAY ==
[2018-12-13 03:40] VITALS: BMI 22.6
== END ==
PROVIDERS: PCP Family Medicine Geriatric Medicine; Visit Provider Family Medicine Geriatric Medicine
DX: E55.9 Vitamin D deficiency, unspecified (principal); R53.83 Other fatigue